=== PATIENT | male | born 1990 | race Caucasian/White ===

== ENCOUNTER 2024-09-26 01:53 | Emergency (ER) | payer MEDICAID, SELFPAY ==
[2024-09-26 02:00] VITALS: BP 140/106; PULSE 118; RESP 16; TEMP 36.7; O2SAT 98; BMI 58.5
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
[2024-09-26] MEDS: ONDANSETRON ODT 4 MG TAB PO (02:23)
[2024-09-26 03:00] VITALS: BP 135/78; PULSE 98; RESP 16; TEMP 36.8; O2SAT 98; O2SAT 99
[2024-09-26] MEDS: OXYCODONE 5 MG TABLET PO (03:04)
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
--- OUTSIDE RECORDS SUMMARY | 2024-09-26 03:23 | XMS_ITS | Encounter Summary ---
Author Organization [facility] Address [address] [place] [address] Care Team Providers Care Blade Balancer Name Role Phone Nicolas Luna D.O. Primary Care Provider Reason for Visit * Reason Onset Date Comments Appt Request 08/15/2024 Encounter Details Date Type Department Care Team (Late st Contact Info) Description 08/15/2024 Clinical Communication [facility] Family Medicine Residency [place] [address] [place] [phone] Nicolas Luna D.O. [address] [place] [phone] Appt Request Social History Tobacco Use Types Packs/Day Years Used Date Smoking Tobacco: Every Day Cigarettes 1 19.1 Started: 08/31/2005 Smokeless Tobacco: Never Alcohol Use Standard Drinks/Week Comments Not Currently 0 (1 standard drink = 0.6 oz pur e alcohol) [facility] Utilities Answer Date Recorded In the past 12 months has e electric, gas, oil, or water company threatened to shut off services in your [...] often do you attend chur ch or adventist services? Never 11/01/2021 Do you belong to any clubs o r organizations such as alevism groups, unions, fraternal or athletic groups, or [...] PHQ-2 Answer Date Recorded PHQ-2 Score 6 09/07/2024 [facility] - Occupational Stress Questionnaire Answer Date Recorded [...] ded PHQ-9 Total Score (max 27) 27 09/07 Nutrition Answer Date Recorded On average, how many serving s of fruits and vegetables do you eat per day (serving size is equal to 1 cup or approximately the size of a tennis ball)? 3-5 06/13/2024 Dental Answer Date Recorded Dental: Regular Dentist No 06/13/20 Employment Answer Date Recorded Employment status Unemployed/not in th e paid workforce but seeking employment 06/13/2024 Housing Stability Answer Date Recorded What is your living situation today? I have a [facility] place to live 06/13/2024 Education Answer Date Recorded What is the highest level of school you have completed or the highest degree you have received? GED or equivalent 11/2021 Sex and Gender Information Value Date Recorded Sex Assigned at Male 11/01/2021 8:39 AM TRANSIT DRIVER Legal Sex Male 4:42 PM TRANSIT DRIVER Gender Identity Male 11/01/2021 8:39 AM TRANSIT DRIVER Sexual Orientation Lesbian or Guerrier 11/01/2021 8: 39 AM TRANSIT DRIVER documented as of this encounter Functional Status * 1. Wish to be (Past 1 Month) Answer Date of Assessment Author Yes 09/07/2024 3:39 PM TRANSIT DRIVER Patient, Online Services * 2. Non-Specific Active Suicidal Thoughts (Past 1 Month) Answer Date of Assessment Author No 09/07/2024 3:39 PM TRANSIT DRIVER Patient, Online Services * Calculated C-SSRS Risk Score (Lifetime/Recent) Answer Date of Assessment Author Low Risk 09/07/2024 3:39 PM TRANSIT DRIVER Patient, Online Services * 6. Suicidal Behavior (Lifetime) Answer Date of Assessment Author No 09/07/2024 3:39 PM TRANSIT DRIVER Patient, Online Services documented as of this encounter Miscellaneous Notes * Telephone Encounter - Shruthi Torres - 08/16/2024 8:21 AM CST 08/16/24 lvm to call back and schedule-lk SIT DRIVER * Telephone Encounter - Terrie Kaur C.M.A. - 08/15/2024 11:05 AM TRANSIT DRIVER is not in clinic next week. First URG/hold spot would be 09/01/24. Ok to use one of thosespots or schedule with another provider that has an opening sooner if needed. SIT DRIVER * Telephone Encounter - Dai Bojorquez - 08/15/2024 10:47 AM CST Reason for Communication: needs ER f/u with PCP or one of the other providers sometime next week. No regular openings, can we use an URG blocked time slot? Action Needed: please review. Special calling instructions: Call Ace back with appt time/day. Ok to leave detailed message on voicemail? yes Portal: Yes-I see you have the portal, we suggest communicating through the portal to serve you most efficiently. Do you approve? YES High Priority Message: yes, needs ER f/u appt If a response is needed, please reply to the appropriate scheduling pool rather than an individual. SIT DRIVER documented in this encounter Plan of Treatment Upcoming Encounters Date Type Department Care Team (Late st Contact Info) Description 10/31/2024 8:30 AM TRANSIT DRIVER Comprehensive Visit Department of Neurology in [place], [place] [address] [place] [phone] Renaldo Gates M.B., Ch.B. [address] [place] [address] documented as of this encounter Visit Diagnoses Not on filedocumented in this encounter Additional Health Concerns Assessment Noted Time PHQ-9 Depression Total Score: 27 024 3:56 PM TRANSIT DRIVER documented as of this encounter Care Teams Blade Balancer Relationship Specialty Start Date End Date Nicolas Luna D.O. [address] [place] [phone] PCP - General Family Medicine 05/13/24 documented as of this encounter
--- OUTSIDE RECORDS SUMMARY | 2024-09-26 03:23 | XMS_ITS | Encounter Summary ---
Author Organization [facility] Address [address] [place] [address] Care Team Providers Care Operations Technician Name Role Phone Nicolas Castellon D.O. Primary Care Provider Reason for Visit * Reason Comments Med Refill Encounter Details Date Type Department Care Team (Late st Contact Info) Description 08/20/2024 Refill [facility] Family Medicine Residency [place] [address] [facility] [phone] Sam Mcpherson M.D. [address] [place] [phone] Med Refill Social History Tobacco Use Types Packs/Day Years Used Date Smoking Tobacco: Every Day Cigarettes 1 19.1 Started: 08/31/2005 Smokeless Tobacco: Never Alcohol Use Standard Drinks/Week Comments Not Currently 0 (1 standard drink = 0.6 oz pur e alcohol) [facility] Utilities Answer Date Recorded In the past [...] often do you attend chur ch or zoroastrian services? Never 11/01/2021 Do you belong to any clubs o r organizations such as roman catholic groups, unions, fraternal or athletic groups, or [...] Answer Date Recorded PHQ-2 Score 6 07/26/2024 [facility] - Occupational [...] your living situation today? I have a [facility] place to live 06/13/2024 Education Answer Date Recorded What is the highest level of school you have completed or the highest degree you have received? GED or equivalent 11/2021 Sex and Gender Information Value Date Recorded Sex Assigned at Male 11/01/2021 8:39 AM FOREIGN FOOD COOK SPECIALTY Legal Sex Male 4:42 PM FOREIGN FOOD COOK SPECIALTY Gender Identity Male 11/01/2021 8:39 AM FOREIGN FOOD COOK SPECIALTY Sexual Orientation Lesbian or Guerrier 11/01/2021 8: 39 AM FOREIGN FOOD COOK SPECIALTY documented as of this encounter Miscellaneous Notes * Telephone Encounter - Beth Shafer, R.N. - 08/22/2024 10:45 AM FOREIGN FOOD COOK SPECIALTY Images from the original note were not included. Last PCP Visit: 06/14/24 Future PCP Visit: none scheduled Script last written: 06/29/24 for 45 tablets EDUCATIONAL ASSISTANT as of today: [employer] * Telephone Encounter - Gina Beavers - 08/22/2024 8:49 AM CST Needs Review: Med Refill Team is unable to forward request to provider. Controlled Substance Primary Provider: Nicolas Castellon D.O. Requested Prescriptions Pending Prescriptions Disp Refills LORazepam (Ativan) 2 mg tablet [Pharmacy Med Name: LORAZEPAM 2MG TABS] 45 tablet 0 Sig: TAKE ONE TABLET BY MOUTH THREE TIMES A DAY NEEDED FOR ANXIETY [employer] documented in this encounter Plan of Treatment Upcoming Encounters Date Type Department Care Team (Late st Contact Info) Description 10/31/2024 8:30 AM FOREIGN FOOD COOK SPECIALTY Comprehensive Visit Department of Neurology in [place], [place] [address] [place] [phone] Renaldo Gates M.B., Ch.B. [address] [place] [phone] documented as of this encounter Visit Diagnoses Diagnosis Other Mixed Anxiety Disorders documented in this encounter Additional Health Concerns Assessment Noted Time PHQ-9 Depression Total Score: 27 024 3:56 PM FOREIGN FOOD COOK SPECIALTY documented as of this encounter Care Teams Operations Technician Relationship Specialty Start Date End Date Nicolas Castellon D.O. [address] [place] [phone] PCP - General Family Medicine 05/13/24 documented as of this encounter
--- OUTSIDE RECORDS SUMMARY | 2024-09-26 03:24 | XMS_ITS | Encounter Summary ---
Author Organization [facility] Address [address] [place] [address] Care Team Providers Care Investment Director Name Role Phone Nicolas Luna D.O. Primary Care Provider Reason for Visit * Reason Onset Date Comments Med Refill 08/25/2024 Encounter Details Date Type Department Care Team (Late st Contact Info) Description 08/25/2024 Refill [facility] Family Medicine Residency [place] [address] [place] [phone] Sam Mcpherson M.D. [address] [place] [phone] Med Refill Social History Tobacco Use Types Packs/Day Years Used Date Smoking Tobacco: Every Day Cigarettes 1 19.1 Started: 08/31/2005 Smokeless Tobacco: Never Alcohol Use Standard Drinks/Week Comments Not Currently 0 (1 standard drink = 0.6 oz pur e alcohol) [facility] Utilities Answer Date Recorded In the [...] often do you attend chur ch or faith services? Never 11/01/2021 Do you belong to any clubs o r organizations such as synagogue groups, unions, fraternal or athletic groups, or [...] Answer Date Recorded PHQ-2 Score 6 07/26/2024 [facility] ional [facility] - [...] your living situation today? I have a [facility] place to live 06/13/2024 Education Answer Date Recorded What is the highest level of school you have completed or the highest degree you have received? GED or equivalent 11/2021 Sex and Gender Information Value Date Recorded Sex Assigned at Male 11/01/2021 8:39 AM SHAPER SETTER Legal Sex Male 4:42 PM SHAPER SETTER Gender Identity Male 11/01/2021 8:39 AM SHAPER SETTER Sexual Orientation Lesbian or Guerrier 11/01/2021 8: 39 AM SHAPER SETTER documented as of this encounter Plan of Treatment Upcoming Encounters Date Type Department Care Team (Late st Contact Info) Description 10/31/2024 8:30 AM SHAPER SETTER Comprehensive Visit Department of Neurology in [address] [phone] Renaldo Gates M.B., Ch.B. [address] [place] [address] documented as of this encounter Visit Diagnoses Diagnosis Other Mixed Anxiety Disorders documented in this encounter Additional Health Concerns Assessment Noted Time PHQ-9 Depression Total Score: 27 024 3:56 PM SHAPER SETTER documented as of this encounter Care Teams Investment Director Relationship Specialty Start Date End Date Nicolas Luna D.O. [address] [place] [phone] PCP - General Family Medicine 05/13/24 documented as of this encounter
--- OUTSIDE RECORDS SUMMARY | 2024-09-26 03:24 | XMS_ITS | Clinical Summary ---
Author Organization [facility] Address [place], [place] [address] Care Team Providers Care Interventional Sale Consultant Name Role Phone Pcp, No Primary Care Provider Unavailabl e Allergies Active Allergy Reactions Criticality Noted Date Comments Escitalopram Rash 02/17/2016 Full body rash Bupropion *Unknown 02/17/2016 No reactions documented Medications * This document contains information received from the source organization and may not represent a complete record from that organization. levomilnacipran 120 mg Cs24 Take 120 mg by mouth once daily. Active lurasidone 60 mg tab Take 60 mg by mouth with dinner. Active QUEtiapine (SEROQUEL XR) 400 mg Extended-Releas e tablet Take 800 mg by mouth at bedtime. Active QUEtiapine (SEROQUEL XR) 150 mg Tb24 Extended-Releas e tablet Take 150 mg by mouth once daily in the afternoon. Active hydrOXYzine pamoate 100 mg capsuleIndicati ons:Anxiety Take 1 capsule by mouth 3 times daily if needed for Anxiety. 0 02/20/2016 Active Active Problems Problem Noted Date Diagnosed Date Schizoaffective disorder, depressive type 2015 Encounters Date Type Department Care Team Description 08/14/2024 10:32 AM CELLO TEACHER - 08/14/2024 11:58 AM CELLO TEACHER Emergency [facility] [address] [place] [address] Nehemiah Rodriguez PA COVID-19 (Primary Dx) Discharge Disposition: Home Self Care 08/14/2024 Telephone [facility] [address] [place] [address] Kwasi Guzman, PharmD Abnormal Lab Results 08/14/2024 Travel from Last 3 Months Family History Medical History Relation Name Comments Alcoholism Maternal Grandfather Alcoholism Maternal Grandmother Alcoholism Paternal Grandfather Alcoholism Paternal Grandmother Relation Name Status Comments Maternal Grandfather Maternal Grandmother Paternal Grandfather Paternal Grandmother Social History Tobacco Use Types Packs/Day Years Used Date Smoking Tobacco: Every Day Cigarettes 1 7 Tobacco Cessation:Ready to Q uit: No; Counseling Given: Yes Alcohol Use Standard Drinks/Week Comments Yes 0 (1 standard drink = 0.6 oz pure alcohol) Occasional, about 1-2 times per week, 0.5 liters each time. Sex and Gender Information Value Date Recorded Sex Assigned at Not on file Legal Sex Male 3:54 PM CDT Gender Identity Not on file Sexual Orientation Not on file Obstetrics History Last Filed Vital Signs Vital Sign Reading Time Taken Comments Blood Pressure 134/84 08/14/2024 11:32 AM CELLO TEACHER Pulse 81 08/14/2024 11:32 AM CELLO TEACHER Temperature 36.5 C (97.7 F) 08/14/2024 10:32 AM CELLO TEACHER Respiratory Rate 20 08/14/2024 10:32 AM CELLO TEACHER Oxygen Saturation 97% 08/14/2024 11:32 AM CELLO TEACHER Inhaled Oxygen Concentration - - Weight 190.1 kg (419 lb) 08/14/2024 10:32 AM CELLO TEACHER Height 182.9 cm (6') 08/14/2024 10:32 AM CELLO TEACHER Body Mass Index 56.83 08/14/2024 10:32 AM CELLO TEACHER Plan of Treatment Health Maintenance Due Date Last Done Comments Tdap 2003 HIV for age 15-65 2007 BMI (ht and wt on same day) for age 18+ 2010 Hepatitis C screening for ag e 18-79 2010 Tetanus booster 2012 Depression screening for age 12+ 02/16/2017 02/17/20 16 COVID-19 vaccine series ( season) 2024 Influenza for age 9-49 05/01/2024 Pneumococcal series for age 6-49 Aged Out No longer eligible based on patient's age to complete this topic Procedures Procedure Name Priority Date/Time Associated Diagnosis Comments XR CHEST 2 VIEWS PA AND LATERAL STAT 08/14/2024 11:40 AM CELLO TEACHER STREP A PCR STAT 08/14/2024 10:46 AM CELLO TEACHER THROAT RAPID STREP A WITH REFLEX STAT 08/14/2024 10:46 AM CELLO TEACHER INFLUENZA A/B PCR STAT 08/14/2024 10: 46 AM CELLO TEACHER COVID-19 MOLECULAR Today 08/14/2024 10 :46 AM CELLO TEACHER from Last 3 Months Results * XR CHEST 2 VIEWS PA AND LATERAL (08/14/2024 11:40 AM CELLO TEACHER) Anatomical Region Laterality Modality CHEST, THORAX, Lung, HEART Digit al Radiography [facility] Fin al Result * (ABNORMAL) COVID-19 MOLECULAR (08/14/2024 10:46 AM CELLO TEACHER) Pathologist [address] MOLECULAR Detected(A) Not detected 08/14/2024 11:25 AM CELLO TEACHER [facility] 08/14/2024 11:25 AM CELLO TEACHER [facility] Comment:Specimen submitted t o [facility] for testing. Other SPECIMEN FROM NASOPHARYNGEAL STRUCTURE / Unknown Non-Blood / Unknown 08/14/2024 10:46 AM CELLO TEACHER 08/14/2024 11:00 AM CELLO TEACHER Nehemiah [facility] Fin al Result [facility] [address] [phone] * (ABNORMAL) STREP A PCR (08/14/2024 10:46 AM CELLO TEACHER) Pathologist [facility] GROUP A STREP Positive(A ) 08/14/2024 2:29 PM CELLO TEACHER [facility]-AT[facility] TRAL LABORAT[facility] Throat SPECIMEN FROM THROAT / Unknown Non-Blood / Unknown 08/14/2024 10:46 AM CELLO TEACHER 08/14/2024 11:15 AM CELLO TEACHER Nehemiah [facility] Fin al Result [facility] [address] [place] [address], * INFLUENZA A/B PCR (08/14/2024 10:46 AM CELLO TEACHER) INFLUENZA A PCR NOT Detected 08/14/2024 11:25 AM CELLO TEACHER [facility] INFLUENZA B PCR NOT Detected 08/14/2024 11:25 AM CELLO TEACHER [facility] Other SPECIMEN FROM NASOPHARYNGEAL STRUCTURE / Unknown Non-Blood / Unknown 08/14/2024 10:46 AM CELLO TEACHER 08/14/2024 11:00 AM CELLO TEACHER Nehemiah [facility] Fin al Result Performing Organization Address [facility] Co de Phone Number [facility] [address] [phone] * THROAT RAPID STREP A WITH REFLEX (08/14/2024 10:46 AM CELLO TEACHER) STREP A ANTIGEN Negative 08/14/2024 11:15 AM CELLO TEACHER [facility] Comment:PCR to follow. Throat SPECIMEN FROM THROAT / Unknown Non-Blood / Unknown 08/14/2024 10:46 AM CELLO TEACHER 08/14/2024 11:00 AM CELLO TEACHER Nehemiah [facility] Fin al Result Performing Organization Address [facility] Co de Phone Number [facility] [address] [phone] from Last 3 Months Insurance MEDICAID [facility] Advance Directives * Full Code (Latest Code Status on File) Date Activated Date Inactivated Comments 02/17/2016 4:09 AM 02/20/2016 12:24 PM Care Teams Interventional Sale Consultant Relationship Specialty Start Date End Date Pcp, No . PCP - General 08/14/24
--- OUTSIDE RECORDS SUMMARY | 2024-09-26 03:24 | XMS_ITS | Encounter Summary ---
Author Organization [facility] Address [address] [place] [address] Care Team Providers Care Tradeshow Worker Name Role Phone Nicolas Castellon D.O. Primary Care Provider Reason for Visit * Reason Comments Med Refill Encounter Details Date Type Department Care Team (Late st Contact Info) Description 08/25/2024 Refill [facility] Family Medicine [place] [address] [facility] [address] Sam Mcpherson M.D. [address] [place] [address] Med Refill Social History Tobacco Use Types Packs/Day Years Used Date Smoking Tobacco: Every Day Cigarettes 1 19.1 Started: 08/31/2005 Smokeless Tobacco: Never Alcohol Use Standard Drinks/Week Comments Not Currently 0 (1 standard drink = 0.6 oz pur e alcohol) [facility] Utilities Answer Date Recorded In the [...] often do you attend chur ch or denominational services? Never 11/01/2021 Do you belong to any clubs o r organizations such as nondenominational groups, unions, fraternal or athletic groups, or [...] Answer Date Recorded PHQ-2 Score 6 07/26/2024 [facility] Occupat ional Health - Occupational Stress [...] your living situation today? I have a [facility] place to live 06/13/2024 Education Answer Date Recorded What is the highest level of school you have completed or the highest degree you have received? GED or equivalent 11/2021 Sex and Gender Information Value Date Recorded Sex Assigned at Male 11/01/2021 8:39 AM REPEAT CHIEF Legal Sex Male 4:42 PM REPEAT CHIEF Gender Identity Male 11/01/2021 8:39 AM REPEAT CHIEF Sexual Orientation Lesbian or Guerrier 11/01/2021 8: 39 AM REPEAT CHIEF documented as of this encounter Miscellaneous Notes * Telephone Encounter - Rena Arellano - 08/26/2024 12:04 PM CST Needs Review: Med Refill Team is unable to forward request to provider. Controlled Substance Primary Provider: Nicolas Castellon D.O. Requested Prescriptions Pending Prescriptions Disp Refills LORazepam (Ativan) 2 mg tablet [Pharmacy Med Name: LORAZEPAM 2MG TABS] 45 tablet 0 Sig: TAKE ONE TABLET BY MOUTH THREE TIMES A DAY NEEDED FOR ANXIETY AT CHIEF documented in this encounter Plan of Treatment Upcoming Encounters Date Type Department Care Team (Late st Contact Info) Description 10/31/2024 8:30 AM REPEAT CHIEF Comprehensive Visit Department of Neurology in [place], [place] [address] [place] [phone] Renaldo Gates M.B., Ch.B. [address] [place] [phone] documented as of this encounter Visit Diagnoses Diagnosis Other Mixed Anxiety Disorders documented in this encounter Additional Health Concerns Assessment Noted Time PHQ-9 Depression Total Score: 27 024 3:56 PM REPEAT CHIEF documented as of this encounter Care Teams Tradeshow Worker Relationship Specialty Start Date End Date Nicolas Castellon D.O. [address] [place] [address] PCP - General Family Medicine 05/13/24 documented as of this encounter
--- OUTSIDE RECORDS SUMMARY | 2024-09-26 03:25 | XMS_ITS | Encounter Summary ---
Author Organization [facility] Address [address] [place] [address] Care Team Providers Care Uniformer Name Role Phone Nicolas Luna D.O. Primary Care Provider Encounter Details Date Type Department Care Team (Latest Contact Info) Description 09/19/2024 8:42 AM SPINNER FIXER - 09/19/2024 11:59 PM [facility] Hospital Encounter Department of Laboratory Medicine, [facility], in [place], [place] [address] [place] [phone] Minh Alves M.D., M.P.H. [address] [place] [phone] Attention Deficit With Hyperactivity Disorder; Bipolar Disorder (HCC); Polypharmacy; High Risk Medication; Posttraumatic Stress Disorder Prolonged; Other Stimulant Use Unspecified In Remission; Body Mass Index 50.0 To 59.9 Adult (HCC) Discharge Disposition: Home or Self Care Social History Tobacco Use Types Packs/Day Years Used Date Smoking Tobacco: Some Days Cigarettes 1 19.1 Started: 08/31/2005 Smokeless Tobacco: Never Alcohol Use Standard Drinks/Week Comments Yes 0 (1 standard drink = 0.6 oz pur e alcohol) occasional - monthly [facility] Utilities Answer Date Recorded In the past 12 months has [employer] electric, gas, oil, or water company threatened [...] week 11/01/2021 How often do you attend [facility] or hinduism services? Never 11/01/2021 Do you belong to any clubs o r organizations such as jewish groups, unions, fraternal or athletic groups, or [...] Answer Date Recorded PHQ-2 Score 6 09/07/2024 [facility] of Occupat ional Health - Occupational Stress [...] your living situation today? I have a [facility] place to live 06/13/2024 Education Answer Date Recorded What is the highest level of school you have completed or the highest degree you have received? GED or equivalent 11/2021 Sex and Gender Information Value Date Recorded Sex Assigned at Male 11/01/2021 8:39 AM SPINNER FIXER Legal Sex Male 4:42 PM SPINNER FIXER Gender Identity Male 11/01/2021 8:39 AM SPINNER FIXER Sexual Orientation Lesbian or Guerrier 11/01/2021 8: 39 AM SPINNER FIXER documented as of this encounter Medications at Time of Discharge albuterol 90 mcg/actuation inhalerIndications :Asthma Mild Intermittent (HCC) Inhale 2 puffs every 6 (six) hours as needed for wheezing. 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 30 tablet 2 05/16/2024 amphetamine-dextro amphetamine (AdderalL XR) 10 mg 24 hr capsuleIndications :Attention Deficit With Hyperactivity Disorder Take 1 capsule (10 mg total) by mouth every morning. 30 capsule 07/23/2024 ARIPiprazole (Abilify) 10 mg tabletIndications: Bipolar Disorder (HCC) Take 1 tablet (10 mg total) by mouth daily. 30 tablet 2 05/16/2024 azelastine (Astelin) 137 mcg/spray (0.1 %) nasal sprayIndications:A llergy Seasonal Administer 1 spray into each nostril as needed for allergies. 30 mL 2 05/16/2024 cetirizine (ZyrTEC) 10 mg tabletIndications: Allergy Seasonal Take 1 tablet (10 mg total) by mouth at bedtime as needed for allergies. 30 tablet 3 05/16/2024 ipratropium-albute roL (DuoNeb) 0.5-2.5 mg/3 mL nebulizer solutionIndication s:Asthma Mild Intermittent (HCC) Inhale 3 mL by nebulization 4 (four) times a day as needed for wheezing or shortness of breath. 180 mL 1 05/16/2024 lithium carbonate (Lithobid) 300 mg ER tablet Take 1 tablet (300 mg total) by mouth at bedtime for 7 days, THEN 2 tablets (600 mg total) at bedtime. 173 tablet 09/09/2024 12/16/19 25 LORazepam (Ativan) 2 mg tabletIndications: Other Mixed Anxiety Disorders Take 1 tablet (2 mg total) by mouth every 8 (eight) hours as needed for anxiety. 45 tablet 08/29/2024 meclizine (Antivert) 25 mg tabletIndications: Dizziness Take 1 tablet (25 mg total) by mouth 3 (three) times a day as needed for dizziness. 30 tablet 05/16/2024 metFORMIN XR (Glucophage-XR) 500 mg 24 hr tabletIndications: PreDiabetes Take 1 tablet (500 mg total) by mouth daily. 30 tablet 3 06/14/2024 10/12/19 25 omeprazole (PriLOSEC) [address] capsuleIndications :Gastroesophageal Reflux Disease Without Esophagitis Take 1 capsule (40 mg total) by mouth daily. 30 capsule 3 05/16/2024 phentermine (Adipex-P) 37.5 mg tablet Take 1 tablet by mouth daily before morning meal. 07/11/2024 prazosin (Minipress) 5 mg capsuleIndications :Posttraumatic Stress Disorder Prolonged Take 1 capsule (5 mg total) by mouth at bedtime. Take 10 mg daily in addition to 1 mg capsule daily for a total of 11 mg daily. 30 capsule 2 09/08/2024 topiramate (Topamax) 100 mg tablet Take 1 tablet (100 mg total) by mouth 2 (two) times a day. 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 30 tablet 3 06/14/2024 10/12/19 25 documented as of this encounter Plan of Treatment Upcoming Encounters Date Type Department Care Team (Late st Contact Info) Description 10/31/2024 8:30 AM SPINNER FIXER Comprehensive Visit Department of Neurology in [address] [phone] Renaldo Gates M.B., Ch.B. [address] [place] [phone] documented as of this encounter Procedures Procedure Name Priority Date/Time Associated Diagnosis Comments LIPID PANEL, S Routine 09/19/2024 9:11 AM SPINNER FIXER Attention Deficit With Hyperactivity Disorder Bipolar Disorder (HCC) Polypharmacy High Risk Medication Posttraumatic Stress Disorder Prolonged Other Stimulant Use Unspecified In Remission Body Mass Index 50.0 To 59.9 Adult ([facility]) VITAMIN D, IMMUNOASSAY, TOTAL, S Routine 09/19/2024 9:11 AM SPINNER FIXER Attention Deficit With Hyperactivity Disorder Bipolar Disorder (HCC) Polypharmacy High Risk Medication Posttraumatic Stress Disorder Prolonged Other Stimulant Use Unspecified In Remission Body Mass Index 50.0 To 59.9 Adult ([facility]) THYROID-STIMULATING HORMONE-SENSITIVE (S-TSH) Routine 09/19/2024 9:11 AM SPINNER FIXER Attention Deficit With Hyperactivity Disorder Bipolar Disorder (HCC) Polypharmacy High Risk Medication Posttraumatic Stress Disorder Prolonged Other Stimulant Use Unspecified In Remission Body Mass Index 50.0 To 59.9 Adult (HCC) T4 (THYROXINE), TOT ONLY, S Routine 09/19/2024 9:11 AM SPINNER FIXER Attention Deficit With Hyperactivity Disorder Bipolar Disorder (HCC) Polypharmacy High Risk Medication Posttraumatic Stress Disorder Prolonged Other Stimulant Use Unspecified In Remission Body Mass Index 50.0 To 59.9 Adult (HCC) HEMOGLOBIN A1C, B Routine 09/19/2024 9:1 1 AM SPINNER FIXER Attention Deficit With Hyperactivity Disorder Bipolar Disorder (HCC) Polypharmacy High Risk Medication Posttraumatic Stress Disorder Prolonged Other Stimulant Use Unspecified In Remission Body Mass Index 50.0 To 59.9 Adult (HCC) FOLATE, S Routine 09/19/2024 9:11 AM SPINNER FIXER Attention Deficit With Hyperactivity Disorder Bipolar Disorder (HCC) Polypharmacy High Risk Medication Posttraumatic Stress Disorder Prolonged Other Stimulant Use Unspecified In Remission Body Mass Index 50.0 To 59.9 Adult (HCC) FERRITIN, S Routine 09/19/2024 9:11 AM SPINNER FIXER Attention Deficit With Hyperactivity Disorder Bipolar Disorder (HCC) Polypharmacy High Risk Medication Posttraumatic Stress Disorder Prolonged Other Stimulant Use Unspecified In Remission Body Mass Index 50.0 To 59.9 Adult (HCC) VITAMIN B12 ASSAY, S Routine 09/19/2024 9:11 AM SPINNER FIXER Attention Deficit With Hyperactivity Disorder Bipolar Disorder (HCC) Polypharmacy High Risk Medication Posttraumatic Stress Disorder Prolonged Other Stimulant Use Unspecified In Remission Body Mass Index 50.0 To 59.9 Adult (HCC) CREATININE WITH EGFR, S/P Routine 09/19/2024 9:11 AM SPINNER FIXER Attention Deficit With Hyperactivity Disorder Bipolar Disorder (HCC) Polypharmacy High Risk Medication Posttraumatic Stress Disorder Prolonged Other Stimulant Use Unspecified In Remission Body Mass Index 50.0 To 59.9 Adult (HCC) LITHIUM LEVEL, S Routine 09/19/2024 9:11 AM SPINNER FIXER Attention Deficit With Hyperactivity Disorder Bipolar Disorder (HCC) Polypharmacy High Risk Medication Posttraumatic Stress Disorder Prolonged Other Stimulant Use Unspecified In Remission Body Mass Index 50.0 To 59.9 Adult (HCC) documented in this encounter Results * (ABNORMAL) Vitamin D, Immunoassay, Total, Serum (09/19/2024 9:11 AM SPINNER FIXER) Vitamin D, Immunoassay, Total, S 15(L) 20 - 80 ng/mL 09/19/2024 12:21 PM SPINNER FIXER [facility] Comment: Interpretation: 10-19 ng/mL (mild to moderate deficiency) Optimum levels within the healthy population are 20-50, patients with bone disease may benefit from high levels within this range Blood (Blood, Venous) 09/19/2024 9:11 AM SPINNER FIXER 09/19/2024 11:29 AM SPINNER FIXER Minh Alves M.D., M.P.H. LAB BLOOD ADD-ON Fi nal Result [facility] [address] [place] [address], [facility] [place] [address] * (ABNORMAL) Lipid Panel (09/19/2024 9:11 AM SPINNER FIXER) Triglycerides 274(H) mg/dL 09/19/2024 12:14 PM SPINNER FIXER [facility] Comment: ----REFERENCE VALUE---- Normal: <150 mg/dL Borderline High: 150-199 mg/dL High: 200-499 mg/dL Very High: > or =500 mg/dL Cholesterol, Total 197 mg/dL 2024 12:14 PM SPINNER FIXER [facility] Comment: ----REFERENCE VALUE---- Desirable: < 200 mg/dL Borderline High: 200 - 239 mg/dL High: > or = 240 mg/dL Cholesterol, LDL, Calculated 103 mg/dL 09/19/2024 12:14 PM SPINNER FIXER [facility] Comment: ----REFERENCE VALUE---- Desirable: <100 mg/dL Above Desirable: 100-129 mg/dL Borderline High: 130-159 mg/dL High: 160-189 mg/dL Very High: >=190 mg/dL ----ADDITIONAL INFORMATION---- LDL cholesterol calculated using the Kwon/NIH equation. Cholesterol, HDL 47 >=40 mg/dL 09/19/19 12:14 PM SPINNER FIXER [facility] Cholesterol, Non-HDL, Calculated 150 mg/dL 09/19/2024 12:14 PM SPINNER FIXER [facility] Comment: ----REFERENCE VALUE---- Desirable: <130 mg/dL Above Desirable: 130-159 mg/dL Borderline High: 160-189 mg/dL High: 190-219 mg/dL Very High: > or =220 mg/dL Fasting (8 HR or more) Yes 09/19/2024 9:11 AM SPINNER FIXER [facility] Blood (Blood, Venous) 09/19/2024 9:11 AM SPINNER FIXER 09/19/2024 11:30 AM SPINNER FIXER Minh Alves M.D., M.P.H. LAB BLOOD ADD-ON Fi nal Result Performing Organization Address City/[facility]/ZIP Co de Phone Number [facility] [address] [place] [address] * Hemoglobin A1c (09/19/2024 9:11 AM SPINNER FIXER) Hemoglobin A1c, B 5.3 4.2 - 5.6 % 09/19/2024 12:00 PM SPINNER FIXER [facility] Blood (Blood, Venous) 09/19/2024 9:11 AM SPINNER FIXER 09/19/2024 11:27 AM SPINNER FIXER Minh Alves M.D., M.P.H. LAB BLOOD ADD-ON Fi nal Result [facility] [address] [place], [place] [address] [place] [address] * Ferritin (09/19/2024 9:11 AM SPINNER FIXER) Ferritin, S 93 31 - 409 mcg/L 09/19/2024 12:15 PM SPINNER FIXER [facility] Comment: Biotin has been identified by the administrative services coordinator as a potential interfering substance. Higher concentrations of biotin may be found in multivitamins, hair/nail supplements, and workout supplements. If the result does not match clinical observations, repeat testing after patient refrains from the use of supplements for at least 12 hours. Blood (Blood, Venous) 09/19/2024 9:11 AM SPINNER FIXER 09/19/2024 11:29 AM SPINNER FIXER Minh Alves M.D., M.P.H. LAB BLOOD ADD-ON Fi nal Result [facility] [address] [place] [address], [place] [address] * North Industry Level (09/19/2024 9:11 AM SPINNER FIXER) [place], S 0.7 0.5 - 1.2 mmol/L 09/19/2024 12:40 PM SPINNER FIXER [facility] Blood (Blood, Venous) 09/19/2024 9:11 AM SPINNER FIXER 09/19/2024 11:29 AM SPINNER FIXER Minh Alves M.D., M.P.H. LAB BLOOD ADD-ON Fi nal Result [facility] [address] [place] [address], [place] [address] * Folate (09/19/2024 9:11 AM SPINNER FIXER) Folate, S 8.6 >=4.0 mcg/L 09/19/2024 12:21 PM SPINNER FIXER [facility] Comment: Biotin has been identified by the administrative services coordinator as a potential interfering substance. Higher concentrations of biotin may be found in multivitamins, hair/nail supplements, and workout supplements. If the result does not match clinical observations, repeat testing after patient refrains from the use of supplements for at least 12 hours. Blood (Blood, Venous) 09/19/2024 9:11 AM SPINNER FIXER 09/19/2024 11:29 AM SPINNER FIXER Minh Alves M.D., M.P.H. LAB BLOOD ADD-ON Fi nal Result [facility] [address] [place] [address], [place] [address] * Vitamin B12 Assay (09/19/2024 9:11 AM SPINNER FIXER) Vitamin B12 Assay, S 831 232 - 1245 ng/L 09/19/2024 12:21 PM SPINNER FIXER TO Comment: Biotin has been identified by the administrative services coordinator as a potential interfering substance. Higher concentrations of biotin may be found in multivitamins, hair/nail supplements, and workout supplements. If the result does not match clinical observations, repeat testing after patient refrains from the use of supplements for at least 12 hours. Blood (Blood, Venous) 09/19/2024 9:11 AM SPINNER FIXER 09/19/2024 11:29 AM SPINNER FIXER Minh Alves M.D., M.P.H. LAB BLOOD ADD-ON Fi nal Result [facility] [address] [place] [address], [place] [address] * Creatinine with Estimated GFR (09/19/2024 9:11 AM SPINNER FIXER) Creatinine 1.01 0.74 - 1.35 mg/dL 09/19/2024 10:10 AM SPINNER FIXER [facility] Estimated GFR (eGFR) >90 >=60 mL/min/BSA 09/19/2024 10:10 AM SPINNER FIXER [facility] Comment: Estimated GFR calculated using the 2020 CKD_EPI creatinine equation. Blood (Blood, Venous) 09/19/2024 9:11 AM SPINNER FIXER 09/19/2024 9:14 AM SPINNER FIXER Minh Alves M.D., M.P.H. LAB BLOOD ADD-ON Fi nal Result Performing Organization Address City/[facility]/ZIP Co de Phone Number [facility] [address] [place] [address], [facility] [address] [place] [address] * T4 (Thyroxine), Total Only (09/19/2024 9:11 AM SPINNER FIXER) T4 (Thyroxine), Total Only, S 7.1 4.5 - 11.7 mcg/dL 2024 1:00 PM SPINNER FIXER DTL Blood (Blood, Venous) 09/19/2024 9:11 AM SPINNER FIXER 2024 12:30 PM SPINNER FIXER Minh Alves M.D., M.P.H. LAB BLOOD ADD-ON Fi nal Result Performing Organization Address [facility]/ZIP Co de Phone Number [facility] [address] [place] [address], [facility] DTL [facility] [address] [place] [address] * S-TSH (Thyroid-Stimulating Hormone - Sensitive) (09/19/2024 9:11 AM SPINNER FIXER) TSH, Sensitive 2.0 0.3 - 4.2 mIU/L 09/19/2024 12:14 PM SPINNER FIXER [facility] Blood (Blood, Venous) 09/19/2024 9:11 AM SPINNER FIXER 09/19/2024 11:30 AM SPINNER FIXER us Minh Alves M.D., M.P.H. LAB BLOOD ADD-ON Fi nal Result [facility] [address] [place] [address], [place] [facility] in [place] [address] [place] [address] documented in this encounter Visit Diagnoses Diagnosis Attention Deficit With Hyperactivity Disorder Bipolar Disorder (HCC) Polypharmacy High Risk Medication Posttraumatic Stress Disorder Prolonged Other Stimulant Use Unspecified In Remission Body Mass Index 50.0 To 59.9 Adult (HCC) documented in this encounter Additional Health Concerns Assessment Noted Time PHQ-9 Depression Total Score: 27 025 3:40 PM SPINNER FIXER documented as of this encounter Care Teams Uniformer Relationship Specialty Start Date End Date Nicolas Luna D.O. [address] [place] [phone] PCP - General Family Medicine 05/13/24 documented as of this encounter
--- OUTSIDE RECORDS SUMMARY | 2024-09-26 03:25 | XMS_ITS | Encounter Summary ---
Author Organization [facility] Address [address] [place] [address] Care Team Providers Care Copper Flotation Operator Name Role Phone Nicolas Castellon D.O. Primary Care Provider Reason for Visit * Reason Comments Med Refill Encounter Details Date Type Department Care Team (Late st Contact Info) Description 09/22/2024 Refill [facility] Family Medicine Residency [place] [address] [facility] [place] [phone] Nicolas Castellon D.O. [address] [facility] [place] [phone] Med Refill Social History Tobacco Use Types Packs/Day Years Used Date Smoking Tobacco: Some Days Cigarettes 1 19.1 Started: 08/31/2005 Smokeless Tobacco: Never Alcohol Use Standard Drinks/Week Comments Yes 0 (1 standard drink = 0.6 oz pur e alcohol) occasional - monthly [facility] Utilities Answer Date Recorded In [...] often do you attend chur ch or alevism services? Never 11/01/2021 Do you belong to any clubs o r organizations such as restoration groups, unions, fraternal or athletic groups, or [...] Answer Date Recorded PHQ-2 Score 6 09/07/2024 [facility] of Occupat ional Health - Occupational Stress [...] your living situation today? I have a [facility] place to live 06/13/2024 Education Answer Date Recorded What is the highest level of school you have completed or the highest degree you have received? GED or equivalent 11/2021 Sex and Gender Information Value Date Recorded Sex Assigned at Male 11/01/2021 8:39 AM DIE FINISHER Legal Sex Male 4:42 PM DIE FINISHER Gender Identity Male 11/01/2021 8:39 AM DIE FINISHER Sexual Orientation Lesbian or Guerrier 11/01/2021 8: 39 AM DIE FINISHER documented as of this encounter Miscellaneous Notes * Telephone Encounter - Marilyn Bustillos - 09/23/2024 5:21 PM CST Needs Review: Med Refill Team is unable to forward request to provider. Controlled Substance Primary Provider: Nicolas Castellon D.O. Requested Prescriptions Pending Prescriptions Disp Refills LORazepam (Ativan) 2 mg tablet [Pharmacy Med Name: LORAZEPAM 2MG TABS] 45 tablet 0 Sig: TAKE ONE TABLET BY MOUTH EVERY 8 HOURS NEEDED FOR ANXIETY FINISHER documented in this encounter Plan of Treatment Upcoming Encounters Date Type Department Care Team (Late st Contact Info) Description 10/31/2024 8:30 AM DIE FINISHER Comprehensive Visit Department of Neurology in [place], [place] [address] [place] [phone] Renaldo Gates M.B., Ch.B. [address] [place] [phone] documented as of this encounter Visit Diagnoses Diagnosis Other Mixed Anxiety Disorders documented in this encounter Additional Health Concerns Assessment Noted Time PHQ-9 Depression Total Score: 27 025 3:40 PM DIE FINISHER documented as of this encounter Care Teams Copper Flotation Operator Relationship Specialty Start Date End Date Nicoals Castellon D.O. [address] [place] [phone] PCP - General Family Medicine 05/13/24 documented as of this encounter
--- OUTSIDE RECORDS SUMMARY | 2024-09-26 03:25 | XMS_ITS | Encounter Summary ---
Author Organization [facility] Address [address] [place] [address] Care Team Providers Care Take Away Attendant Name Role Phone Nicolas Luna D.O. Primary Care Provider Reason for Visit * Reason Onset Date Comments Med Refill 08/29/2024 Encounter Details Date Type Department Care Team (Late st Contact Info) Description 08/29/2024 Refill Department of Family Medicine in [place], [place] [address] [place] [phone] Krish Powell D.O. [address] [place] [phone] Med Refill Social History Tobacco Use Types Packs/Day Years Used Date Smoking Tobacco: Every Day Cigarettes 1 19.1 Started: 08/31/2005 Smokeless Tobacco: Never Alcohol Use Standard Drinks/Week Comments Not Currently 0 (1 standard drink = 0.6 oz pur e alcohol) [facility] Utilities Answer Date Recorded In [...] often do you attend chur ch or latter day services? Never 11/01/2021 Do you belong to any clubs o r organizations such as catholic groups, unions, fraternal or athletic groups, [...] Answer Date Recorded PHQ-2 Score 6 07/26/2024 [facility] of Occupat ional Health - Occupational Stress [...] your living situation today? I have a [facility] place to live 06/13/2024 Education Answer Date Recorded What is the highest level of school you have completed or the highest degree you have received? GED or equivalent 11/2021 Sex and Gender Information Value Date Recorded Sex Assigned at Male 11/01/2021 8:39 AM ADMINISTRATIVE SUPPORT MANAGER Legal Sex Male 4:42 PM ADMINISTRATIVE SUPPORT MANAGER Gender Identity Male 11/01/2021 8:39 AM ADMINISTRATIVE SUPPORT MANAGER Sexual Orientation Lesbian or Guerrier 11/01/2021 8: 39 AM ADMINISTRATIVE SUPPORT MANAGER documented as of this encounter Miscellaneous Notes * Telephone Encounter - Beth Shafer R.N. - 08/29/2024 12:11 PM ADMINISTRATIVE SUPPORT MANAGER Images from the original note were not included. Last PCP Visit: 06/14/24 Future PCP Visit: none scheduled with PCP Script last written: 07/23/24 for 30 caps #9 Attention Deficit With Hyperactivity Disorder LABORATORY TECH as of today: NISTRATIVE SUPPORT MANAGER documented in this encounter Plan of Treatment Upcoming Encounters Date Type Department Care Team (Late st Contact Info) Description 10/31/2024 8:30 AM ADMINISTRATIVE SUPPORT MANAGER Comprehensive Visit Department of Neurology in [place], [place] [address] [place] [phone] Renaldo Gates M.B., Ch.B. [address] [place] [phone] documented as of this encounter Visit Diagnoses Diagnosis Attention Deficit With Hyperactivity Disorder documented in this encounter Additional Health Concerns Assessment Noted Time PHQ-9 Depression Total Score: 27 024 3:56 PM ADMINISTRATIVE SUPPORT MANAGER documented as of this encounter Care Teams Take Away Attendant Relationship Specialty Start Date End Date Nicolas Luna D.O. [address] [place] [phone] PCP - General Family Medicine 05/13/24 documented as of this encounter
--- OUTSIDE RECORDS SUMMARY | 2024-09-26 03:25 | XMS_ITS | Encounter Summary ---
Author Organization [facility] Address [address] [place] [address] Care Team Providers Care Sheeter Helper Name Role Phone Nicolas Luna D.O. Primary Care Provider Reason for Visit * Reason Comments Outpatient Infusion [facility]il[facility] * Outpatient (Routine) - Closed Specialty Diagnoses / Procedures Referred By Contsandor t Referred To Contact Diagnoses Bipolar Disorder (HCC) Schizoaffective Disorder Depressive Type (HCC) Procedures PSY Medication Injection Nicolas Luna D.O. [address] [place] [phone] Phone: tel: fax: [facility] Region Referral ID Status Reason Start Date Expiration Date Visits Re quested Visits Authorized [id number] Closed 06/27/2024 06/27/2025 1 1 Encounter Details Date Type Department Care Team (Late st Contact Info) Description 08/26/2024 8:30 AM MACHINE STAKER Infusion Department of Infusion Therapy in [place], [place] [address] [place] [phone] Nicolas Luna D.O. [address] [place] [phone] Schizoaffective Disorder Depressive Type (HCC) (Primary Dx); Bipolar Disorder (HCC) Social History Tobacco Use Types Packs/Day Years Used Date Smoking Tobacco: Every Day Cigarettes 1 19.1 Started: 08/31/2005 Smokeless Tobacco: Never Alcohol Use Standard Drinks/Week Comments Not Currently 0 (1 standard drink = 0.6 oz pur e alcohol) [facility] Utilities Answer Date Recorded In the past [...] often do you attend chur ch or yazdanism services? Never 11/01/2021 Do you belong to any clubs o r organizations such as rastafari groups, unions, fraternal or athletic groups, or [...] Answer Date Recorded PHQ-2 Score 6 07/26/2024 [facility] [place] of Occupat ional Health - Occupational Stress [...] your living situation today? I have a [facility] place to live 06/13/2024 Education Answer Date Recorded What is the highest level of school you have completed or the highest degree you have received? GED or equivalent 11/2021 Sex and Gender Information Value Date Recorded Sex Assigned at Male 11/01/2021 8:39 AM MACHINE STAKER Legal Sex Male 4:42 PM MACHINE STAKER Gender Identity Male 11/01/2021 8:39 AM MACHINE STAKER Sexual Orientation Lesbian or Guerrier 11/01/2021 8: 39 AM MACHINE STAKER documented as of this encounter Last Filed Vital Signs Vital Sign Reading Time Taken Comments Blood Pressure 124/97 08/26/2024 8:42 AM MACHINE STAKER Pulse 91 08/26/2024 8:42 AM MACHINE STAKER Temperature 36.3 C (97.3 F) 08/26/2024 8:42 AM MACHINE STAKER Respiratory Rate 18 08/26/2024 8:42 AM MACHINE STAKER Oxygen Saturation - - Inhaled Oxygen Concentration - - Weight - - Height - - Body Mass Index - - documented in this encounter Plan of Treatment Upcoming Encounters Date Type Department Care Team (Late st Contact Info) Description 10/31/2024 8:30 AM MACHINE STAKER Comprehensive Visit Department of Neurology in [place], [place] [address] [place] [phone] Renaldo Gates M.B., Ch.B. [address] [place] [phone] documented as of this encounter Visit Diagnoses Diagnosis Schizoaffective Disorder Depressive Type (HCC)- Primary Bipolar Disorder (HCC) documented in this encounter Administered Medications Inactive Administered Medications - up to 3 most recent administrations Medication Order MAR Action Action Date Dose Rate Site ARIPiprazole injection 400 mg (Abilify Maintena) 400 mg, intramuscular, Once, On Thu08/26/24 at 0900, For 1 dose, Injection Site: Deltoid or GlutealIndications:Bipolar Disorder (HCC),Schizoaffective Disorder Depressive Type (HCC) Given 08/26/2024 8:44 AM MACHINE STAKER 400 mg Right Deltoid documented in this encounter Additional Health Concerns Assessment Noted Time PHQ-9 Depression Total Score: 27 024 3:56 PM MACHINE STAKER documented as of this encounter Care Teams Sheeter Helper Relationship Specialty Start Date End Date Nicolas Luna D.O. [address] [place] [address] PCP - General Family Medicine 05/13/24 documented as of this encounter
--- OUTSIDE RECORDS SUMMARY | 2024-09-26 03:25 | XMS_ITS | Encounter Summary ---
Author Organization [facility] Address [address] [place] [address] Care Team Providers Care Grain Spouter Name Role Phone Nicolas Luna D.O. Primary Care Provider Reason for Visit * Reason Onset Date Comments Med Question 08/29/2024 Encounter Details Date Type Department Care Team (Late st Contact Info) Description 08/29/2024 Clinical Communication [facility] Family Medicine Res[facility] [place] [address] [facility] [place] [phone] Nicolas Luna D.O. [address] [facility] [place] [phone] Med Question Social History Tobacco Use Types Packs/Day Years Used Date Smoking Tobacco: Every Day Cigarettes 1 19.1 Started: 08/31/2005 Smokeless Tobacco: Never Alcohol Use Standard Drinks/Week Comments Not Currently 0 (1 standard drink = 0.6 oz pur e alcohol) [facility] Utilities Answer Date Recorded In the [...] often do you attend chur ch or judaism services? Never 11/01/2021 Do you belong to any clubs o r organizations such as adventist groups, unions, fraternal or athletic groups, or [...] Answer Date Recorded PHQ-2 Score 6 07/26/2024 [facility] of Occupat ional Health - Occupational [...] your living situation today? I have a [facility] place to live 06/13/2024 Education Answer Date Recorded What is the highest level of school you have completed or the highest degree you have received? GED or equivalent 11/2021 Sex and Gender Information Value Date Recorded Sex Assigned at Male 11/01/2021 8:39 AM CLEARING TUB WORKER Legal Sex Male 4:42 PM CLEARING TUB WORKER Gender Identity Male 11/01/2021 8:39 AM CLEARING TUB WORKER Sexual Orientation Lesbian or Guerrier 11/01/2021 8: 39 AM CLEARING TUB WORKER documented as of this encounter Miscellaneous Notes * Telephone Encounter - Terrie Kaur, C.M.A. - 08/29/2024 8:57 AM CLEARING TUB WORKER Pharmacy is saying they didn't receive script from 08/22/24. Can you please resend? RING TUB WORKER documented in this encounter Plan of Treatment Upcoming Encounters Date Type Department Care Team (Late st Contact Info) Description 10/31/2024 8:30 AM CLEARING TUB WORKER Comprehensive Visit Department of Neurology in [place], [place] [address] [place] [phone] Renaldo Gates M.B., .B. [address] [place] [phone] documented as of this encounter Visit Diagnoses Diagnosis Other Mixed Anxiety Disorders documented in this encounter Additional Health Concerns Assessment Noted Time PHQ-9 Depression Total Score: 27 024 3:56 PM CLEARING TUB WORKER documented as of this encounter Care Teams Grain Spouter Relationship Specialty Start Date End Date Nicolas Luna D.O. [address] [place] [address] PCP - General Family Medicine 05/13/24 documented as of this encounter
--- OUTSIDE RECORDS SUMMARY | 2024-09-26 03:25 | XMS_ITS ---
Author Organization [facility] Address [address] [place] [address] Care Team Providers Care Entertainment Manager Name Role Phone Unavailable Unavailable Unavailable Surgery Details Not on file Complications Check Surgery Details section. Procedure Estimated Blood Loss Check Surgery Details section. Procedure Findings Check Surgery Details section. Procedure Specimens Taken Check Surgery Details section.
--- OUTSIDE RECORDS SUMMARY | 2024-09-26 03:25 | XMS_ITS | Clinical Summary ---
Author Organization [facility] Address [address] [place] [address] Care Team Providers Care Manager Of Community Relations Name Role Phone Nicolas Luna D.O. Primary Care Provider Source Comments Patient records contain information from all sites at [facility]. For routine questions regarding patient records, call [phone] during business hours, M-F 8:00 AM - 5:00 PM Central Time. Record requests for emergency care only can be directed to [phone] at any time.[facility] Allergies Active Allergy Reactions Criticality Noted Date Comments Adhesive Rash 11/01/2021 Bupropion Hcl Rash 06/06/2017 Escitalopram Oxalate Rash 05/15/2012 Fluoxetine Other (see comments) 06/06/2017 Loratadine Hives (Reselect Reaction) High 12/24/2012 Medications * This document contains information received from the source organization and may not represent a complete record from that organization. 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 30 tablet 2 024 Active ARIPiprazole (Abilify) 10 mg tabletIndicatio ns:Bipolar Disorder (HCC) Take 1 tablet (10 mg total) by mouth daily. 30 tablet 2 024 Active albuterol 90 mcg/actuation inhalerIndicati ons:Asthma Mild Intermittent (HCC) Inhale 2 puffs every 6 (six) hours as needed for wheezing. 18 g 024 Active albuterol 2.5 mg /3 mL nebulizer solutionIndicat ions:Asthma Mild Intermittent (HCC) Inhale 3 mL (2.5 mg total) by nebulization 4 (four) times a day. 360 mL 3 Active cetirizine (ZyrTEC) 10 mg tabletIndicatio ns:Allergy Seasonal Take 1 tablet (10 mg total) by mouth at bedtime as needed for allergies. 30 tablet 3 024 Active ipratropium-alb uteroL (DuoNeb) 0.5-2.5 mg/3 mL nebulizer solutionIndicat ions:Asthma Mild Intermittent (HCC) Inhale 3 mL by nebulization 4 (four) times a day as needed for wheezing or shortness of breath. 180 mL 1 Active meclizine (Antivert) 25 mg tabletIndicatio ns:Dizziness Take 1 tablet (25 mg total) by mouth 3 (three) times a day as needed for dizziness. 30 tablet 024 Active omeprazole (PriLOSEC) [address] capsuleIndicati ons:Gastroesoph ageal Reflux Disease Without Esophagitis Take 1 capsule (40 mg total) by mouth daily. 30 capsule 3 024 Active azelastine (Astelin) 137 mcg/spray (0.1 %) nasal sprayIndication s:Allergy Seasonal Administer 1 spray into each nostril as needed for allergies. 30 mL 2 Active topiramate (Topamax) 100 mg tablet Take 1 tablet (100 mg total) by mouth 2 (two) times a day. 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 30 tablet 3 024 2024 Active metFORMIN XR (Glucophage-XR) 500 mg 24 hr tabletIndicatio ns:PreDiabetes Take 1 tablet (500 mg total) by mouth daily. 30 tablet 3 024 2024 Active amphetamine-dex troamphetamine (AdderalL XR) 10 mg 24 hr capsuleIndicati ons:Attention Deficit With Hyperactivity Disorder Take 1 capsule (10 mg total) by mouth every morning. 30 capsule Active LORazepam (Ativan) 2 mg tabletIndicatio ns:Other Mixed Anxiety Disorders Take 1 tablet (2 mg total) by mouth every 8 (eight) hours as needed for anxiety. 45 tablet Active phentermine (Adipex-P) 37.5 mg tablet Take 1 tablet by mouth daily before morning meal. Active prazosin (Minipress) 5 mg capsuleIndicati ons:Posttraumat ic Stress Disorder Prolonged Take 1 capsule (5 mg total) by mouth at bedtime. Take 10 mg daily in addition to 1 mg capsule daily for a total of 11 mg daily. 30 capsule 2 Active lithium carbonate (Lithobid) 300 mg ER tablet Take 1 tablet (300 mg total) by mouth at bedtime for 7 days, THEN 2 tablets (600 mg total) at bedtime. 173 tablet 025 2024 Active guaiFENesin (Mucinex) 600 mg 12 hr tablet Take 1,200 mg by mouth. 024 2024 Discontinued(T herapy completed) ARIPiprazole (Abilify) 30 mg tabletIndicatio ns:Bipolar Disorder (HCC) Take 1 tablet (30 mg total) by mouth daily. 30 tablet 2 024 2024 Discontinued prazosin (Minipress) 5 mg capsuleIndicati ons:Posttraumat ic Stress Disorder Prolonged Take 2 capsules (10 mg total) by mouth at bedtime. Take 10 mg daily in addition to 1 mg capsule daily for a total of 11 mg daily. 60 capsule 3 024 2024 Discontinued topiramate (Qudexy XR) 100 mg ER sprinkle capsule Take 1 capsule (100 mg total) by mouth daily before morning meal for 14 days. 14 capsule 024 2024 Discontinued(D ose adjustment) prazosin (Minipress) 1 mg capsuleIndicati ons:Posttraumat ic Stress Disorder Prolonged Take 1 capsule (1 mg total) by mouth at bedtime. Take 1 mg capsule daily in addition to 10 mg daily for a total of 11 mg daily. 30 capsule 3 024 2024 Discontinued ARIPiprazole (Abilify Maintena) 400 mg injectionIndica tions:Bipolar Disorder (HCC) Inject 1 each (400 mg total) intramuscularly every 28 (twenty-eight) days for 2 doses. 2 each 024 2024 Discontinued LORazepam (Ativan) 2 mg tabletIndicatio ns:Other Mixed Anxiety Disorders TAKE ONE TABLET BY MOUTH THREE TIMES A DAY NEEDED FOR ANXIETY 45 tablet 024 2023 Discontinued(R eorder) lithium carbonate (Lithobid) 300 mg ER tablet Take 1 tablet (300 mg total) by mouth at bedtime for 7 days, THEN 1 tablet (300 mg total) at bedtime. 67 tablet 025 2024 Discontinued(R eorder) Hospital, Clinic, or Other Facility Administered Medication Ordered Dose Route Frequency Start Date End Date Status ARIPiprazole injection 400 mg (Abilify Maintena)Indications:Attent ion Deficit With Hyperactivity Disorder,Bipolar Disorder (HCC),Polypharmacy,High Risk Medication,Posttraumatic Stress Disorder Prolonged,Other Stimulant Use Unspecified In Remission,Body Mass Index 50.0 To 59.9 Adult (HCC) 400 mg IM Once 09/19/2024 09/19/2024 Ended Active Problems Problem Noted Date Diagnosed Date Polypharmacy 09/08/2024 High Risk Medication 09/08/2024 Other Stimulant Use Unspecified In Remission 05/2025 Overview (09/08/2024): 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 -Lumbar MRI and CT AP without evidence of acute pathology. PreDiabetes 11/21/2023 Overview (06/14/2024): Most recent A1c: Lab Results Component Value Date HGBA1C 5.7 (H) 03/07/2022 Most recent microalbumin: Most recent creatinine: Lab Results Component Value Date CREATININE 0.99 06/10/2024 CREATPOC 0.8 05/23/2021 Current regimen: Metformin 500 mg daily. 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 -patient reports that he is overall feeling well and feel that his symptoms are well-controlled on current medications. Denies any significant adverse symptoms from these meds. -while he waits to get in to see a psychiatrist I will fill his medications to bridge. Assessment & Plan (06/14/2024 9:02 AM CDT): -patient states that he is working with the psychiatry team and filling out paperwork in order to schedule an appointment. I encouraged him to continue this. -also send a message to the psychiatry scheduling team in order to help facilitate this process. Other Mixed Anxiety Disorders 07/17/2021 Body Mass Index 50.0 To 59.9 Adult 04/26/2020 Obstructive Sleep Apnea Adult 04/26/2020 Schizoaffective Disorder Depressive Type 016 Resolved Problems Problem Noted Date Diagnosed Date Resolved Date Sleep Apnea 09/08/2024 09/08/2024 Encounters * This document contains information received from the source organization and may not represent a complete record from that organization. Date Type Department Care Team Description 09/22/2024 Refill [facility] [address] [place] [address] Nicolas Luna D.O. Med Refill 09/19/2024 8:42 AM TALENT ACQUISITION COORDINATOR - 09/19/2024 11:59 PM TALENT ACQUISITION COORDINATOR Hospital Encounter Department of Laboratory Medicine, [facility], in [place], [place] [address] [place] [address] Minh Alves M.D., M.P.H. Attention Deficit With Hyperactivity Disorder; Bipolar Disorder (HCC); Polypharmacy; High Risk Medication; Posttraumatic Stress Disorder Prolonged; Other Stimulant Use Unspecified In Remission; Body Mass Index 50.0 To 59.9 Adult (FORMERLY [facility]) Discharge Disposition: Home or Self Care 09/08/2024 Clinical Communication [facility] [address] [place] [address] Nicolas Luna D.O. After Visit Question 08/29/2024 Clinical Communication [facility] [address] [place] [address] Nicolas Luna D.O. Med Question 08/29/2024 Refill Department of Family Medicine in [place], [place] [address] [facility] [place] [address] Krish Powell D.O. Med Refill 08/29/2024 Refill [facility] [address] [place] [address] Marco A Brown III, M.D. Med Refill 08/29/2024 Refill [facility] [address] [place] [address] Sam Mcpherson M.D. Med Refill 08/27/2024 9:24 AM TALENT ACQUISITION COORDINATOR - 08/27/2024 11:59 PM TALENT ACQUISITION COORDINATOR Hospital Encounter Department of Laboratory Medicine, [facility], in [place], [place] [address] [place] [address] Nicolas Luna D.O. Screening Examination Diabetes Mellitus Discharge Disposition: Home or Self Care 08/26/2024 8:30 AM TALENT ACQUISITION COORDINATOR Infusion Department of Infusion Therapy in [address] [address] Nicolas Luna D.O. Schizoaffective Disorder Depressive Type (HCC) (Primary Dx); Bipolar Disorder (HCC) 08/25/2024 Refill [facility] [address] [place] [address] Sam Mcpherson M.D. Med Refill 08/25/2024 Refill [facility] [address] [place] [address] Sam Mcpherson M.D. Med Refill 08/20/2024 Refill [facility] [address] [place] [address] Sam Mcpherson M.D. Med Refill 08/15/2024 Clinical Communication [facility] [address] [place] [address] Nicolas Lnua D.O. Appt Request 08/14/2024 10:25 AM TALENT ACQUISITION COORDINATOR - 08/14/2024 11:59 PM TALENT ACQUISITION COORDINATOR Emergency [facility] [address] [place] [phone] COVID-19 Infection (Primary Dx) Discharge Disposition: Home or Self Care 08/04/2024 Orders Only [facility] Nicolas Luna D.O. Screening Examination Diabetes Mellitus 07/29/2024 9:00 AM TALENT ACQUISITION COORDINATOR Infusion Department of Infusion Therapy in [address] [address] Nicolas Luna D.O. Schizoaffective Disorder Depressive Type (HCC) (Primary Dx); Bipolar Disorder (HCC) 07/26/2024 8:45 AM TALENT ACQUISITION COORDINATOR Diagnostic Department of Neurology in [place], [place] [address] [place] [address] Krishna Pappas M.D. Incontinence Fecal; Incontinence Urinary; Paresthesia Discharge Disposition: Home or Self Care 07/19/[address] [place] [address] Krish Powell D.O. Med Refill 07/01/2024 8:30 AM CDT Infusion Department of Infusion Therapy in [address] [address] Nicolas Luna D.O. Schizoaffective Disorder Depressive Type (HCC) (Primary Dx); Bipolar Disorder (HCC) 06/27/2024 Clinical Communication [facility] [address] [place] [address] Nicolas Luna D.O. Ability Orders 06/26/[address] [place] [address] Marco A Brown III, M.D. Med Refill from Last 3 Months Immunizations Immunization Administration Dates Next Due Influenza, Unspecified 11/01/2013 PCV20 06/14/2024 PPSV23 04/27/2020 Tdap 09/27/2019,08/11/2006 influenza trivalent vaccine (6 months and older) (PF) 06/14/2024 influenza vaccine quad (FLUZ ONE/FLUARIX) (6 months and older)(PF) 10/08/2022 Social History Tobacco Use Types Packs/Day Years Used Date Smoking Tobacco: Some Days Cigarettes 1 19.1 Started: 08/31/2005 Smokeless Tobacco: Never Tobacco Cessation:Ready to Q uit: Not Asked; Counseling Given: Yes Alcohol Use Standard Drinks/Week Comments Yes 0 (1 standard drink = 0.6 oz pur e alcohol) occasional - monthly [facility] Utilities Answer Date Recorded In the [...] any clubs o r organizations such as taoist groups, unions, fraternal or athletic groups, or [...] Answer Date Recorded PHQ-2 Score 6 09/07/2024 [facility] - Occupational Stress Questionnaire Answer Date [...] your living situation today? I have a [facility] place to live 06/13/2024 Education Answer Date Recorded What is the highest level of school you have completed or the highest degree you have received? GED or equivalent 11/2021 Sex and Gender Information Value Date Recorded Sex Assigned at Male 11/01/2021 8:39 AM TALENT ACQUISITION COORDINATOR Legal Sex Male 4:42 PM TALENT ACQUISITION COORDINATOR Gender Identity Male 11/01/2021 8:39 AM TALENT ACQUISITION COORDINATOR Sexual Orientation Lesbian or Guerrier 11/01/2021 8: 39 AM TALENT ACQUISITION COORDINATOR Last Filed Vital Signs Vital Sign Reading Time Taken Comments Blood Pressure 124/97 08/26/2024 8:42 AM TALENT ACQUISITION COORDINATOR Pulse 91 08/26/2024 8:42 AM TALENT ACQUISITION COORDINATOR Temperature 36.3 C (97.3 F) 08/26/2024 8:42 AM TALENT ACQUISITION COORDINATOR Respiratory Rate 18 08/26/2024 8:42 AM TALENT ACQUISITION COORDINATOR Oxygen Saturation 96% 06/22/2024 8:07 AM CDT Inhaled Oxygen Concentration - - Weight 191 kg (420 lb) 09/08/2024 2:48 PM TALENT ACQUISITION COORDINATOR Height 182.9 cm (6' 0.01) 09/08/2024 2:48 PM CS T Body Mass Index 56.95 09/08/2024 2:48 PM TALENT ACQUISITION COORDINATOR Plan of Treatment Upcoming Encounters Date Type Department Care Team (Late st Contact Info) Description 10/31/2024 8:30 AM TALENT ACQUISITION COORDINATOR Comprehensive Visit Department of Neurology in [place], [place] [address] [place] [phone] Renaldo Gates M.B., Ch.B. [address] [place] [address] Health Maintenance Due Date Last Done Comments HIV Screening 1992 Hepatitis C Screening 1992 Hepatitis A Vaccines (1 of 2 - Risk 2-dose series) 2011 Hepatitis B Vaccines (1 of 3 - 19+ 3-dose series) 2011 Asthma Action Plan 01/14/2022 COVID-19 Vaccine ( season) 2024 01/06/2022, 02/14/2021, 01/17/2021 Asthma Control Test Questionnaire 06/24/2024 05/13/2024 Depression Screening (Annual PHQ-2) 08/31/2024 Asthma Management/Exacerbation Questionnaire (AMQ/AEQ) 05/13/2025 05/13/2024 Tobacco Cessation counseling 09/08/2025 09/08/2024 Fasting Glucose for Diabetes Screening 09/19/2025 09/19/2024, 08/27/2024, 04/09/2022, Additional history exists DTaP,Tdap,and Td Vaccines (3 - Td or Tdap) 09/27/2029 09/27/2019, 08/11/2006 Influenza Vaccine Completed 06/14/2024, , 11/01/2013 Pneumococcal vaccine (0-49 years) Completed 06/14/2024, 04/27/2020 Glucose Test for Med Monitoring Discontinued 09/19/2024, 08/27/2024, 04/09/2022, Additional history exists HPV Vaccines Aged Out No longer eligi ble based on patient's age to complete this topic IPV Vaccines Aged Out No longer eligi ble based on patient's age to complete this topic Procedures Procedure Name Priority Date/Time Associated Diagnosis Comments VITAMIN D, IMMUNOASSAY, TOTAL, S Routine 09/19/2024 9:11 AM TALENT ACQUISITION COORDINATOR Attention Deficit With Hyperactivity Disorder Bipolar Disorder (HCC) Polypharmacy High Risk Medication Posttraumatic Stress Disorder Prolonged Other Stimulant Use Unspecified In Remission Body Mass Index 50.0 To 59.9 Adult (HCC) LIPID PANEL, S Routine 09/19/2024 9:11 AM TALENT ACQUISITION COORDINATOR Attention Deficit With Hyperactivity Disorder Bipolar Disorder (HCC) Polypharmacy High Risk Medication Posttraumatic Stress Disorder Prolonged Other Stimulant Use Unspecified In Remission Body Mass Index 50.0 To 59.9 Adult (HCC) HEMOGLOBIN A1C, B Routine 09/19/2024 9:1 1 AM TALENT ACQUISITION COORDINATOR Attention Deficit With Hyperactivity Disorder Bipolar Disorder (HCC) Polypharmacy High Risk Medication Posttraumatic Stress Disorder Prolonged Other Stimulant Use Unspecified In Remission Body Mass Index 50.0 To 59.9 Adult (HCC) FERRITIN, S Routine 09/19/2024 9:11 AM TALENT ACQUISITION COORDINATOR Attention Deficit With Hyperactivity Disorder Bipolar Disorder (HCC) Polypharmacy High Risk Medication Posttraumatic Stress Disorder Prolonged Other Stimulant Use Unspecified In Remission Body Mass Index 50.0 To 59.9 Adult (HCC) LITHIUM LEVEL, S Routine 09/19/2024 9:11 AM TALENT ACQUISITION COORDINATOR Attention Deficit With Hyperactivity Disorder Bipolar Disorder (HCC) Polypharmacy High Risk Medication Posttraumatic Stress Disorder Prolonged Other Stimulant Use Unspecified In Remission Body Mass Index 50.0 To 59.9 Adult (HCC) FOLATE, S Routine 09/19/2024 9:11 AM TALENT ACQUISITION COORDINATOR Attention Deficit With Hyperactivity Disorder Bipolar Disorder (HCC) Polypharmacy High Risk Medication Posttraumatic Stress Disorder Prolonged Other Stimulant Use Unspecified In Remission Body Mass Index 50.0 To 59.9 Adult (HCC) VITAMIN B12 ASSAY, S Routine 09/19/2024 9:11 AM TALENT ACQUISITION COORDINATOR Attention Deficit With Hyperactivity Disorder Bipolar Disorder (HCC) Polypharmacy High Risk Medication Posttraumatic Stress Disorder Prolonged Other Stimulant Use Unspecified In Remission Body Mass Index 50.0 To 59.9 Adult (HCC) CREATININE WITH EGFR, S/P Routine 09/19/2024 9:11 AM TALENT ACQUISITION COORDINATOR Attention Deficit With Hyperactivity Disorder Bipolar Disorder (HCC) Polypharmacy High Risk Medication Posttraumatic Stress Disorder Prolonged Other Stimulant Use Unspecified In Remission Body Mass Index 50.0 To 59.9 Adult (HCC) T4 (THYROXINE), TOT ONLY, S Routine 09/19/2024 9:11 AM TALENT ACQUISITION COORDINATOR Attention Deficit With Hyperactivity Disorder Bipolar Disorder (HCC) Polypharmacy High Risk Medication Posttraumatic Stress Disorder Prolonged Other Stimulant Use Unspecified In Remission Body Mass Index 50.0 To 59.9 Adult (HCC) THYROID-STIMULATI NG HORMONE-SENSITIVE (S-TSH) Routine 09/19/2024 9:11 AM TALENT ACQUISITION COORDINATOR Attention Deficit With Hyperactivity Disorder Bipolar Disorder (HCC) Polypharmacy High Risk Medication Posttraumatic Stress Disorder Prolonged Other Stimulant Use Unspecified In Remission Body Mass Index 50.0 To 59.9 Adult (HCC) GLUCOSE, FASTING, S/P Routine 08/27/2024 9:33 AM TALENT ACQUISITION COORDINATOR Screening Examination Diabetes Mellitus DX CHEST AP OR PA AND LATERAL 2 VIEWS RAD - Semiurgent (Fast; most ED patients; some inpatients) 08/14/2024 11:40 AM TALENT ACQUISITION COORDINATOR EMG Routine 07/26/2024 8:32 AM TALENT ACQUISITION COORDINATOR Incontinence Fecal Incontinence Urinary Paresthesia from Last 3 Months Results * (ABNORMAL) Lipid Panel (09/19/2024 9:11 AM TALENT ACQUISITION COORDINATOR) Triglycerides 274(H) mg/dL 09/19/2024 12:14 PM TALENT ACQUISITION COORDINATOR [facility] Comment: ----REFERENCE VALUE---- Normal: <150 mg/dL Borderline High: 150-199 mg/dL High: 200-499 mg/dL Very High: > or =500 mg/dL Cholesterol, Total 197 mg/dL 2024 12:14 PM TALENT ACQUISITION COORDINATOR [facility] Comment: ----REFERENCE VALUE---- Desirable: < 200 mg/dL Borderline High: 200 - 239 mg/dL High: > or = 240 mg/dL Cholesterol, LDL, Calculated 103 mg/dL 09/19/2024 12:14 PM TALENT ACQUISITION COORDINATOR [facility] Comment: ----REFERENCE VALUE---- Desirable: <100 mg/dL Above Desirable: 100-129 mg/dL Borderline High: 130-159 mg/dL High: 160-189 mg/dL Very High: >=190 mg/dL ----ADDITIONAL INFORMATION---- LDL cholesterol calculated using the Kwon/NIH equation. Cholesterol, HDL 47 >=40 mg/dL 09/19/19 12:14 PM TALENT ACQUISITION COORDINATOR [facility] Cholesterol, Non-HDL, Calculated 150 mg/dL 09/19/2024 12:14 PM TALENT ACQUISITION COORDINATOR [facility] Comment: ----REFERENCE VALUE---- Desirable: <130 mg/dL Above Desirable: 130-159 mg/dL Borderline High: 160-189 mg/dL High: 190-219 mg/dL Very High: > or =220 mg/dL Fasting (8 HR or more) Yes 09/19/2024 9:11 AM TALENT ACQUISITION COORDINATOR [facility] Blood (Blood, Venous) 09/19/2024 9:11 AM TALENT ACQUISITION COORDINATOR 09/19/2024 11:30 AM TALENT ACQUISITION COORDINATOR us Minh lAves M.D., M.P.H. LAB BLOOD ADD-ON Fi nal Result [facility] [address] [place] [address], [facility] [place] [address] * (ABNORMAL) Vitamin D, Immunoassay, Total, Serum (09/19/2024 9:11 AM TALENT ACQUISITION COORDINATOR) Vitamin D, Immunoassay, Total, S 15(L) 20 - 80 ng/mL 09/19/2024 12:21 PM TALENT ACQUISITION COORDINATOR [facility] Comment: Interpretation: 10-19 ng/mL (mild to moderate deficiency) Optimum levels within the healthy population are 20-50, patients with bone disease may benefit from high levels within this range Blood (Blood, Venous) 09/19/2024 9:11 AM TALENT ACQUISITION COORDINATOR 09/19/2024 11:29 AM TALENT ACQUISITION COORDINATOR Minh Alves M.D., M.P.H. LAB BLOOD ADD-ON Fi nal Result Performing Organization Address City/[facility] Co de Phone Number [facility] [address] [place] [address] * S-TSH (Thyroid-Stimulating Hormone - Sensitive) (09/19/2024 9:11 AM TALENT ACQUISITION COORDINATOR) Pathologist [facility] TSH, Sensitive 2.0 0.3 - 4.2 mIU/L 09/19/2024 12:14 PM TALENT ACQUISITION COORDINATOR [facility] Blood (Blood, Venous) 09/19/2024 9:11 AM TALENT ACQUISITION COORDINATOR 09/19/2024 11:30 AM TALENT ACQUISITION COORDINATOR Minh Alves M.D., M.P.H. LAB BLOOD ADD-ON Fi nal Result Performing Organization Address City/[facility]/ZIP Co de Phone Number [facility] [address] [place] [address], [place] [address] * T4 (Thyroxine), Total Only (09/19/2024 9:11 AM TALENT ACQUISITION COORDINATOR) Pathologist [facility] T4 (Thyroxine), Total Only, S 7.1 4.5 - 11.7 mcg/dL 2024 1:00 PM TALENT ACQUISITION COORDINATOR DTL Blood (Blood, Venous) 09/19/2024 9:11 AM TALENT ACQUISITION COORDINATOR 2024 12:30 PM TALENT ACQUISITION COORDINATOR Result [facility] Minh Alves M.D., M.P.H. LAB BLOOD ADD-ON Fi nal Result [facility] [address] [place] [address], [facility] [address] [place] [address] * Hemoglobin A1c (09/19/2024 9:11 AM TALENT ACQUISITION COORDINATOR) Hemoglobin A1c, B 5.3 4.2 - 5.6 % 09/19/2024 12:00 PM TALENT ACQUISITION COORDINATOR [facility] Blood (Blood, Venous) 09/19/2024 9:11 AM TALENT ACQUISITION COORDINATOR 09/19/2024 11:27 AM TALENT ACQUISITION COORDINATOR Minh Alves M.D., M.P.H. LAB BLOOD ADD-ON Fi nal Result Performing Organization Address City/[facility] Co de Phone Number [facility] [address] [place] [address], [place] [facility] in [address] [address] * Folate (09/19/2024 9:11 AM TALENT ACQUISITION COORDINATOR) Folate, S 8.6 >=4.0 mcg/L 09/19/2024 12:21 PM TALENT ACQUISITION COORDINATOR [facility] Comment: Biotin has been identified by the interlocking and signal mechanic as a potential interfering substance. Higher concentrations of biotin may be found in multivitamins, hair/nail supplements, and workout supplements. If the result does not match clinical observations, repeat testing after patient refrains from the use of supplements for at least 12 hours. Blood (Blood, Venous) 09/19/2024 9:11 AM TALENT ACQUISITION COORDINATOR 09/19/2024 11:29 AM TALENT ACQUISITION COORDINATOR Minh Alves M.D., M.P.H. LAB BLOOD ADD-ON Fi nal Result Performing Organization Address City/[facility]/ZIP Co de Phone Number [facility] [address] [place] [phone], [facility] [address] [place] [phone] * Ferritin (09/19/2024 9:11 AM TALENT ACQUISITION COORDINATOR) Ferritin, S 93 31 - 409 mcg/L 09/19/2024 12:15 PM TALENT ACQUISITION COORDINATOR [facility] Comment: Biotin has been identified by the interlocking and signal mechanic as a potential interfering substance. Higher concentrations of biotin may be found in multivitamins, hair/nail supplements, and workout supplements. If the result does not match clinical observations, repeat testing after patient refrains from the use of supplements for at least 12 hours. Blood (Blood, Venous) 09/19/2024 9:11 AM TALENT ACQUISITION COORDINATOR 09/19/2024 11:29 AM TALENT ACQUISITION COORDINATOR Minh Alves M.D., M.P.H. LAB BLOOD ADD-ON Fi nal Result Performing Organization Address City/[facility]/ZIP Co de Phone Number [facility] [address] [place] [phone], [facility] [place] [address] [place] [address] * Vitamin B12 Assay (09/19/2024 9:11 AM TALENT ACQUISITION COORDINATOR) Vitamin B12 Assay, S 831 232 - 1245 ng/L 09/19/2024 12:21 PM TALENT ACQUISITION COORDINATOR [facility] Comment: Biotin has been identified by the interlocking and signal mechanic as a potential interfering substance. Higher concentrations of biotin may be found in multivitamins, hair/nail supplements, and workout supplements. If the result does not match clinical observations, repeat testing after patient refrains from the use of supplements for at least 12 hours. Blood (Blood, Venous) 09/19/2024 9:11 AM TALENT ACQUISITION COORDINATOR 09/19/2024 11:29 AM TALENT ACQUISITION COORDINATOR Minh Alves M.D., M.P.H. LAB BLOOD ADD-ON Fi nal Result Performing Organization Address City/[facility]/ZIP Co de Phone Number [facility] [address] [place] [phone], [address] [address] * Creatinine with Estimated GFR (09/19/2024 9:11 AM TALENT ACQUISITION COORDINATOR) Creatinine 1.01 0.74 - 1.35 mg/dL 09/19/2024 10:10 AM TALENT ACQUISITION COORDINATOR ERDG Estimated GFR (eGFR) >90 >=60 mL/min/BSA 09/19/2024 10:10 AM TALENT ACQUISITION COORDINATOR ERD Comment: Estimated GFR calculated using the 2020 CKD_EPI creatinine equation. Blood (Blood, Venous) 09/19/2024 9:11 AM TALENT ACQUISITION COORDINATOR 09/19/2024 9:14 AM TALENT ACQUISITION COORDINATOR us Minh Alves M.D., M.P.H. LAB BLOOD ADD-ON Fi nal Result Performing Organization Address [facility]/ZIP Co de Phone Number [facility] [address] [place] [address] * [place] Level (09/19/2024 9:11 AM TALENT ACQUISITION COORDINATOR) [place], S 0.7 0.5 - 1.2 mmol/L 09/19/2024 12:40 PM TALENT ACQUISITION COORDINATOR [facility] Blood (Blood, Venous) 09/19/2024 9:11 AM TALENT ACQUISITION COORDINATOR 09/19/2024 11:29 AM TALENT ACQUISITION COORDINATOR us Minh Alves M.D., M.P.H. LAB BLOOD ADD-ON Fi nal Result Performing Organization Address City/[facility]/ZIP Co de Phone Number [facility] [address] [place] [phone], [address] [address] * Glucose, Fasting (08/27/2024 9:33 AM TALENT ACQUISITION COORDINATOR) Glucose, P 95 70 - 100 mg/dL 08/27/2024 10:35 AM TALENT ACQUISITION COORDINATOR ERDG Last Intake 12 hr 08/27/2024 9:34 AM TALENT ACQUISITION COORDINATOR [facility] Blood (Blood, Venous) 08/27/2024 9:33 AM TALENT ACQUISITION COORDINATOR 08/27/2024 9:34 AM TALENT ACQUISITION COORDINATOR us Nicolas Luna D.O. LAB BLOOD NON ADD-ON Fi nal Result [facility] [address] [place] [address], [facility] ERDG [facility] [address] [place] [address] * DX Chest AP or PA and Lateral 2 Views (08/14/2024 11:40 AM TALENT ACQUISITION COORDINATOR) Anatomical Region Laterality Modality Chest, Thoracic RST LOS, Tho racic ARZ LOS, Thoracic FLA LOS N/A Digital Radiography Impressions 08/14/2024 12:13 PM TALENT ACQUISITION COORDINATOR No acute airspace opacities, pleural effusion, or pneumothorax. Cardiac silhouette is within normal limits. Narrative 08/14/2024 12:13 PM TALENT ACQUISITION COORDINATOR EXAM: DX CHEST AP OR PA AND LATERAL 2 VIEWS Procedure Note Timmy Lerma M.D. - 08/14/2024 EXAM: DX CHEST AP OR PA AND LATERAL 2 VIEWS IMPRESSION: No acute airspace opacities, pleural effusion, or pneumothorax. Cardiacsilhouette is within normal limits. us Nehemiah Rodriguez P.A.-C. IMG DIAGNOSTIC IMAG ING PROCEDURES Final Result * EMG (07/26/2024 8:32 AM TALENT ACQUISITION COORDINATOR) 07/26/2024 8:45 AM TALENT ACQUISITION COORDINATOR Narrative [facility] - 07/26/2024 9:55 AM TALENT ACQUISITION COORDINATOR Table formatting from the original result was not included. 26-Jul-2024 Electromyography Final Report Study Number: 1 EMG Sous Chef Kitchen Manager: Krishna Pappas Referred by: NICOLAS LUNA () Referred for: RLE Referral Code: 040 RX: 001 SUMMARY: Prior to starting the procedure, the patient's identity was verified, pertinent available records were reviewed, the nature of the procedure was explained, the appropriate sites of the exam were confirmed directly with the patient, and a pre-procedure pause was performed for final verification of all of the above. Nerve conduction studies in the right lower extremity revealed normal peroneal and tibial motor responses. Sural sensory response was normal. Needle EMG of the right lower extremity was normal. CLINICAL INTERPRETATION: Normal study. There is no electrodiagnostic evidence of a peripheral neuropathic process affecting the right lower extremity on this study. Donnie Pappas () NERVE CONDUCTIONS Record Rep Normal Normal Distal Normal F-Wave F-Wave Temp Nerve Type Site Stim Side Amp Amp CV CV Lat Lat Lat Est ( C) Fibular Motor EDB R 10.7 (> 2.0) 50 (> 41) 3.8 (< 6.6) 28.4 Tibial Motor AH R 10.8 (> 4.0) 45 (> 40) 3.1 (< 6.1) 28.7 Remark: Poor tolerance Sural Sensory Ankle R 7 (> 6.0) (> 40) 4.2 (< 4.5) 28.8 NEEDLE EMG Ins Spont MUP Recruitment Duration Amplitude Phases Muscle Side Act Fib Fasc Normal Activ Reduced Rapid Long Short High Low % Turns Vastus lateralis R NL 0 0 NL Vastus medialis R NL 0 0 NL Gastrocnemius (medial head) R NL 0 0 NL Peroneus longus R NL 0 0 NL Tibialis anterior R NL 0 0 NL This interpretation has been electronically signed: Krishna Pappas M.D. at 07/26/2024 9:35:30 AM TALENT ACQUISITION COORDINATOR Nicolas Luna D.O. NEUROLOGY ORDERABLES Fi nal Result [facility] from Last 3 Months Insurance * Guarantor: Frederick Llamas Account Type Relation to Patient Date of Phone Billing Address Personal/Family Self 1990 [address] [place] [phone] [employer] Care Teams Manager Of Community Relations Relationship Specialty Start Date End Date Nicolas Luna D.O. [address] [place] [phone] PCP - General Family Medicine 05/13/24
--- OUTSIDE RECORDS SUMMARY | 2024-09-26 03:25 | XMS_ITS | Encounter Summary ---
Author Organization [facility] Address [address] [place] [address] Care Team Providers Care Flask Fitter Name Role Phone Nicolas Luna D.O. Primary Care Provider Reason for Visit * Reason Onset Date Comments After Visit Question 09/08/2024 Encounter Details Date Type Department Care Team (Latest Contact Info) Description 09/08/2024 Clinical Communication [facility] Family Medicine Residency [place] [address] [place] [phone] Nicolas Luna D.O. [address] [place] [phone] After Visit Question Social History Tobacco Use Types Packs/Day Years Used Date Smoking Tobacco: Some Days Cigarettes 1 19.1 Started: 08/31/2005 Smokeless Tobacco: Never Alcohol Use Standard Drinks/Week Comments Yes 0 (1 standard drink = 0.6 oz pur e alcohol) occasional - monthly [facility] Utilities Answer Date Recorded In the past 12 months has [employer] electric, gas, oil, or water company threatened [...] often do you attend chur ch or gnosticist services? Never 11/01/2021 Do you belong to any clubs o r organizations such as mosque groups, unions, fraternal or athletic groups, or [...] Answer Date Recorded PHQ-2 Score 6 09/07/2024 [facility] [...] your living situation today? I have a [facility] place to live 06/13/2024 Education Answer Date Recorded What is the highest level of school you have completed or the highest degree you have received? GED or equivalent 11/2021 Sex and Gender Information Value Date Recorded Sex Assigned at Male 11/01/2021 8:39 AM COST REDUCTION ENGINEER Legal Sex Male 4:42 PM COST REDUCTION ENGINEER Gender Identity Male 11/01/2021 8:39 AM COST REDUCTION ENGINEER Sexual Orientation Lesbian or Guerrier 11/01/2021 8: 39 AM COST REDUCTION ENGINEER documented as of this encounter Plan of Treatment Upcoming Encounters Date Type Department Care Team (Late st Contact Info) Description 10/31/2024 8:30 AM COST REDUCTION ENGINEER Comprehensive Visit Department of Neurology in [address] [phone] Renaldo Gates M.B., Ch.B. [address] [place] [address] documented as of this encounter Visit Diagnoses Not on filedocumented in this encounter Additional Health Concerns Assessment Noted Time PHQ-9 Depression Total Score: 27 025 3:40 PM COST REDUCTION ENGINEER documented as of this encounter Care Teams Flask Fitter Relationship Specialty Start Date End Date Nicolas Luna D.O. [address] [place] [phone] PCP - General Family Medicine 05/13/24 documented as of this encounter
--- OUTSIDE RECORDS SUMMARY | 2024-09-26 03:25 | XMS_ITS | Referral Summary ---
Author Organization [facility] Address [address] [place] [address] Care Team Providers Care Fountain Jerk Name Role Phone Nicolas Luna D.O. Primary Care Provider Source Comments Patient records contain information from all sites at [facility]. For routine questions regarding patient records, call [phone] during business hours, M-F 8:00 AM - 5:00 PM Central Time. Record requests for emergency care only can be directed to [phone] at any time.[facility] Encounters * This document contains information received from the source organization and may not represent a complete record from that organization. Date Type Department Care Team Description 09/22/2024 Refill [facility] Family Medicine Residency [place] [address] [place] [address] Nicolas Luna D.O. Med Refill 09/19/2024 8:42 AM GREENS CUTTER - 09/19/2024 11:59 PM GREENS CUTTER Hospital Encounter Department of Laboratory Medicine, [facility], in [place], [place] [address] [place] [address] Minh Alves M.D., M.P.H. Attention Deficit With Hyperactivity Disorder; Bipolar Disorder (HCC); Polypharmacy; High Risk Medication; Posttraumatic Stress Disorder Prolonged; Other Stimulant Use Unspecified In Remission; Body Mass Index 50.0 To 59.9 Adult (HCC) Discharge Disposition: Home or Self Care 09/08/2024 Clinical Communication [facility] [address] [place] [address] Nicolas Luna D.O. After Visit Question 08/29/2024 Clinical Communication [facility] [address] [place] [address] Nicolas Luna D.O. Med Question 08/29/2024 Refill Department of Family Medicine in [place], [place] [address] [facility] [place] [address] Krish Powell D.O. Med Refill 08/29/2024 Refill [facility] [address] [place] [address] Marco A Brown III, M.D. Med Refill 08/29/2024 Refill [facility] [address] [place] [address] Sam Mcpherson M.D. Med Refill 08/27/2024 9:24 AM GREENS CUTTER - 08/27/2024 11:59 PM GREENS CUTTER Hospital Encounter Department of Laboratory Medicine, [facility], in [place], [place] [address] [place] [address] Nicolas Luna D.O. Screening Examination Diabetes Mellitus Discharge Disposition: Home or Self Care 08/26/2024 8:30 AM GREENS CUTTER Infusion Department of Infusion Therapy in [place], [place] [address] [place] [address] Nicolas Luna D.O. Schizoaffective Disorder Depressive Type (HCC) (Primary Dx); Bipolar Disorder (HCC) 08/25/2024 Refill [facility] [address] [place] [address] Sam Mcpherson M.D. Med Refill 08/25/2024 Refill [facility] [address] [place] [address] Sam Mcpherson M.D. Med Refill 08/20/2024 Refill [facility] [address] [place] [address] Sam Mcpherson M.D. Med Refill 08/15/2024 Clinical Communication [facility] [address] [place] [address] Nicolas Luna D.O. Appt Request 08/14/2024 10:25 AM GREENS CUTTER - 08/14/2024 11:59 PM GREENS CUTTER Emergency [facility] [address] [place] [phone] COVID-19 Infection (Primary Dx) Discharge Disposition: Home or Self Care 08/04/2024 Orders Only [facility] Nicolas Luna D.O. Screening Examination Diabetes Mellitus 07/29/2024 9:00 AM GREENS CUTTER Infusion Department of Infusion Therapy in [address] [address] Nicolas Luna D.O. Schizoaffective Disorder Depressive Type (HCC) (Primary Dx); Bipolar Disorder (HCC) 07/26/2024 8:45 AM GREENS CUTTER Diagnostic Department of Neurology in [address] [address] Krishna Pappas M.D. Incontinence Fecal; Incontinence Urinary; Paresthesia Discharge Disposition: Home or Self Care 07/19/2024 Refill [facility] [address] [place] [address] Krish Powell D.O. Med Refill 07/01/2024 8:30 AM CDT Infusion Department of Infusion Therapy in [address] [address] Nicolas Luna D.O. Schizoaffective Disorder Depressive Type (HCC) (Primary Dx); Bipolar Disorder (HCC) 06/27/2024 Clinical Communication [facility] [address] [place] [address] Nicolas Luna D.O. Ability Orders 06/26/2024 Refill [facility] [place] [address] [place] [address] Marco A Brown III, M.D. Med Refill from Last 3 Months Allergies Active Allergy Reactions Criticality Noted Date [...] (four) times a day. 360 mL 3 024 Active cetirizine (ZyrTEC) 10 mg tabletIndicatio ns:Allergy Seasonal Take 1 tablet (10 mg total) by mouth at bedtime as needed for allergies. 30 tablet 3 024 Active ipratropium-alb uteroL (DuoNeb) 0.5-2.5 mg/3 mL nebulizer solutionIndicat ions:Asthma Mild Intermittent (HCC) Inhale 3 mL by nebulization 4 (four) times a day as needed for wheezing or shortness of breath. 180 mL 1 024 Active meclizine (Antivert) 25 mg tabletIndicatio ns:Dizziness [...] as needed for allergies. 30 mL 2 024 Active topiramate (Topamax) 100 mg tablet Take 1 tablet (100 mg total) by mouth 2 (two) times a day. 180 tablet 3 024 Active vortioxetine (Trintellix) 20 mg tabletIndicatio ns:Depression [...] total) by mouth every morning. 30 capsule 024 Active LORazepam (Ativan) 2 mg tabletIndicatio ns:Other Mixed Anxiety Disorders Take 1 tablet (2 mg total) by mouth every 8 (eight) hours as needed for anxiety. 45 tablet 024 Active phentermine (Adipex-P) 37.5 mg tablet Take 1 tablet by mouth daily before morning meal. 024 Active prazosin (Minipress) 5 mg capsuleIndicati ons:Posttraumat [...] at bedtime. 67 tablet 025 2024 Discontinued(R eoerastoer) Hospital, Clinic, or Other Facility Administered Medication Ordered Dose Route Frequency Start Date End Date Status ARIPiprazole injection 400 mg (Felicia Ford)Indications:Attent ion Deficit With Hyperactivity Disorder,Bipolar Disorder (HCC),Polypharmacy,High [...] Dizziness 01/14/2022 Posttraumatic Stress Disorder Prolonged 11/02/19 22 Irritable Bowel Syndrome With Diarrhea Unspecified Chronic [...] Date Resolved Date Sleep Apnea 09/08/2024 09/08/2024 Immunizations Immunization Administration Dates Next Due Influenza, [...] oz pur e alcohol) occasional - monthly [facility] Utilities Answer Date Recorded In the [...] often do you attend chur ch or sabianism services? Never 11/01/2021 Do you belong to any clubs o r organizations such as uatsdin groups, unions, fraternal or athletic groups, or [...] Answer Date Recorded PHQ-2 Score 6 09/07/2024 [facility] - Occupational Stress Questionnaire Answer Date [...] your living situation today? I have a [facility] place to live 06/13/2024 Education Answer Date Recorded What is the highest level of school you have completed or the highest degree you have received? GED or equivalent 11/2021 Sex and Gender Information Value Date Recorded Sex Assigned at Male 11/01/2021 8:39 AM GREENS CUTTER Legal Sex Male 4:42 PM GREENS CUTTER Gender Identity Male 11/01/2021 8:39 AM GREENS CUTTER Sexual Orientation Lesbian or Guerrier 11/01/2021 8: 39 AM GREENS CUTTER Last Filed Vital Signs Vital Sign Reading Time Taken Comments Blood Pressure 124/97 08/26/2024 8:42 AM GREENS CUTTER Pulse 91 08/26/2024 8:42 AM GREENS CUTTER Temperature 36.3 C (97.3 F) 08/26/2024 8:42 AM GREENS CUTTER Respiratory Rate 18 08/26/2024 8:42 AM GREENS CUTTER Oxygen Saturation 96% 06/22/2024 8:07 AM CDT Inhaled Oxygen Concentration - - Weight 191 kg (420 lb) 09/08/2024 2:48 PM GREENS CUTTER Height 182.9 cm (6' 0.01) 09/08/2024 2:48 PM CS T Body Mass Index 56.95 09/08/2024 2:48 PM GREENS CUTTER Plan of Treatment Upcoming Encounters Date Type Department Care Team (Late st Contact Info) Description 10/31/2024 8:30 AM GREENS CUTTER Comprehensive Visit Department of Neurology in [address] [phone] Renaldo Gates M.B., Ch.B. [address] [place] [phone] Procedures Procedure Name Priority Date/Time Associated Diagnosis Comments VITAMIN D, IMMUNOASSAY, TOTAL, S Routine 09/19/2024 9:11 AM GREENS CUTTER Attention Deficit With Hyperactivity Disorder Bipolar Disorder (HCC) Polypharmacy High Risk Medication Posttraumatic Stress Disorder Prolonged Other Stimulant Use Unspecified In Remission Body Mass Index 50.0 To 59.9 Adult ([facility]) LIPID PANEL, S Routine 09/19/2024 9:11 AM GREENS CUTTER Attention Deficit With Hyperactivity Disorder Bipolar Disorder (HCC) Polypharmacy High Risk Medication Posttraumatic Stress Disorder Prolonged Other Stimulant Use Unspecified In Remission Body Mass Index 50.0 To 59.9 Adult ([facility]) HEMOGLOBIN A1C, B Routine 09/19/2024 9:1 1 AM GREENS CUTTER Attention Deficit With Hyperactivity Disorder Bipolar Disorder (HCC) Polypharmacy High Risk Medication Posttraumatic Stress Disorder Prolonged Other Stimulant Use Unspecified In Remission Body Mass Index 50.0 To 59.9 Adult ([facility]) FERRITIN, S Routine 09/19/2024 9:11 AM GREENS CUTTER Attention Deficit With Hyperactivity Disorder Bipolar Disorder (HCC) Polypharmacy High Risk Medication Posttraumatic Stress Disorder Prolonged Other Stimulant Use Unspecified In Remission Body Mass Index 50.0 To 59.9 Adult (HCC) LITHIUM LEVEL, S Routine 09/19/2024 9:11 AM GREENS CUTTER Attention Deficit With Hyperactivity Disorder Bipolar Disorder (HCC) Polypharmacy High Risk Medication Posttraumatic Stress Disorder Prolonged Other Stimulant Use Unspecified In Remission Body Mass Index 50.0 To 59.9 Adult (HCC) FOLATE, S Routine 09/19/2024 9:11 AM GREENS CUTTER Attention Deficit With Hyperactivity Disorder Bipolar Disorder (HCC) Polypharmacy High Risk Medication Posttraumatic Stress Disorder Prolonged Other Stimulant Use Unspecified In Remission Body Mass Index 50.0 To 59.9 Adult (HCC) VITAMIN B12 ASSAY, S Routine 09/19/2024 9:11 AM GREENS CUTTER Attention Deficit With Hyperactivity Disorder Bipolar Disorder (HCC) Polypharmacy High Risk Medication Posttraumatic Stress Disorder Prolonged Other Stimulant Use Unspecified In Remission Body Mass Index 50.0 To 59.9 Adult (HCC) CREATININE WITH EGFR, S/P Routine 09/19/2024 9:11 AM GREENS CUTTER Attention Deficit With Hyperactivity Disorder Bipolar Disorder (HCC) Polypharmacy High Risk Medication Posttraumatic Stress Disorder Prolonged Other Stimulant Use Unspecified In Remission Body Mass Index 50.0 To 59.9 Adult (HCC) T4 (THYROXINE), TOT ONLY, S Routine 09/19/2024 9:11 AM GREENS CUTTER Attention Deficit With Hyperactivity Disorder Bipolar Disorder (HCC) Polypharmacy High Risk Medication Posttraumatic Stress Disorder Prolonged Other Stimulant Use Unspecified In Remission Body Mass Index 50.0 To 59.9 Adult (HCC) THYROID-STIMULATI NG HORMONE-SENSITIVE (S-TSH) Routine 09/19/2024 9:11 AM GREENS CUTTER Attention Deficit With Hyperactivity Disorder Bipolar Disorder (HCC) Polypharmacy High Risk Medication Posttraumatic Stress Disorder Prolonged Other Stimulant Use Unspecified In Remission Body Mass Index 50.0 To 59.9 Adult (HCC) GLUCOSE, FASTING, S/P Routine 08/27/2024 9:33 AM GREENS CUTTER Screening Examination Diabetes Mellitus DX CHEST AP OR PA AND LATERAL 2 VIEWS RAD - Semiurgent (Fast; most ED patients; some inpatients) 08/14/2024 11:40 AM GREENS CUTTER EMG Routine 07/26/2024 8:32 AM GREENS CUTTER Incontinence Fecal Incontinence Urinary Paresthesia from Last 3 Months Results * (ABNORMAL) Lipid Panel (09/19/2024 9:11 AM GREENS CUTTER) Triglycerides 274(H) mg/dL 09/19/2024 12:14 PM GREENS CUTTER [facility] Comment: ----REFERENCE VALUE---- Normal: <150 mg/dL Borderline High: 150-199 mg/dL High: 200-499 mg/dL Very High: > or =500 mg/dL Cholesterol, Total 197 mg/dL 2024 12:14 PM GREENS CUTTER [facility] Comment: ----REFERENCE VALUE---- Desirable: < 200 mg/dL Borderline High: 200 - 239 mg/dL High: > or = 240 mg/dL Cholesterol, LDL, Calculated 103 mg/dL 09/19/2024 12:14 PM GREENS CUTTER [facility] Comment: ----REFERENCE VALUE---- Desirable: <100 mg/dL Above Desirable: 100-129 mg/dL Borderline High: 130-159 mg/dL High: 160-189 mg/dL Very High: >=190 mg/dL ----ADDITIONAL INFORMATION---- LDL cholesterol calculated using the Kwon/NIH equation. Cholesterol, HDL 47 >=40 mg/dL 09/19/19 12:14 PM GREENS CUTTER [facility] Cholesterol, Non-HDL, Calculated 150 mg/dL 09/19/2024 12:14 PM GREENS CUTTER [facility] Comment: ----REFERENCE VALUE---- Desirable: <130 mg/dL Above Desirable: 130-159 mg/dL Borderline High: 160-189 mg/dL High: 190-219 mg/dL Very High: > or =220 mg/dL Fasting (8 HR or more) Yes 09/19/2024 9:11 AM GREENS CUTTER [facility] Blood (Blood, Venous) 09/19/2024 9:11 AM GREENS CUTTER 09/19/2024 11:30 AM GREENS CUTTER Minh Alves M.D., M.P.H. LAB BLOOD ADD-ON Fi nal Result Performing Organization Address [facility]/ZIP Co de Phone Number [facility] [address] [place] [address], [place] [address] * (ABNORMAL) Vitamin D, Immunoassay, Total, Serum (09/19/2024 9:11 AM GREENS CUTTER) Vitamin D, Immunoassay, Total, S 15(L) 20 - 80 ng/mL 09/19/2024 12:21 PM GREENS CUTTER [facility] Comment: Interpretation: 10-19 ng/mL (mild to moderate deficiency) Optimum levels within the healthy population are 20-50, patients with bone disease may benefit from high levels within this range Blood (Blood, Venous) 09/19/2024 9:11 AM GREENS CUTTER 09/19/2024 11:29 AM GREENS CUTTER Minh Alves M.D., M.P.H. LAB BLOOD ADD-ON Fi nal Result Performing Organization Address City/[facility]/ZIP Co de Phone Number [facility] [address] [place] [address], [place] [address] * S-TSH (Thyroid-Stimulating Hormone - Sensitive) (09/19/2024 9:11 AM GREENS CUTTER) TSH, Sensitive 2.0 0.3 - 4.2 mIU/L 09/19/2024 12:14 PM GREENS CUTTER [facility] Blood (Blood, Venous) 09/19/2024 9:11 AM GREENS CUTTER 09/19/2024 11:30 AM GREENS CUTTER Minh Alves M.D., M.P.H. LAB BLOOD ADD-ON Fi nal Result [facility] [address] [place] [address], [facility] [address] [place] [id number] * T4 (Thyroxine), Total Only (09/19/2024 9:11 AM GREENS CUTTER) T4 (Thyroxine), Total Only, S 7.1 4.5 - 11.7 mcg/dL 2024 1:00 PM GREENS CUTTER DT Blood (Blood, Venous) 09/19/2024 9:11 AM GREENS CUTTER 2024 12:30 PM GREENS CUTTER Minh Alves M.D., M.P.H. LAB BLOOD ADD-ON Fi nal Result Performing Organization Address City/[facility]/ZIP Co de Phone Number [facility] [address] [place] [address], [facility] [address] [place] [address] * Hemoglobin A1c (09/19/2024 9:11 AM GREENS CUTTER) Pathologist [facility] [place] Hemoglobin A1c, B 5.3 4.2 - 5.6 % 09/19/2024 12:00 PM GREENS CUTTER [facility] Blood (Blood, Venous) 09/19/2024 9:11 AM GREENS CUTTER 09/19/2024 11:27 AM GREENS CUTTER Minh Alves M.D., M.P.H. LAB BLOOD ADD-ON Fi nal Result [facility] [address] [place] [address], [place] [facility] [address] [place] [address] * Folate (09/19/2024 9:11 AM GREENS CUTTER) Pathologist [facility] [place] Folate, S 8.6 >=4.0 mcg/L 09/19/2024 12:21 PM GREENS CUTTER [facility] Comment: Biotin has been identified by the electrologist as a potential interfering substance. Higher concentrations of biotin may be found in multivitamins, hair/nail supplements, and workout supplements. If the result does not match clinical observations, repeat testing after patient refrains from the use of supplements for at least 12 hours. Blood (Blood, Venous) 09/19/2024 9:11 AM GREENS CUTTER 09/19/2024 11:29 AM GREENS CUTTER Minh Alves M.D., M.P.H. LAB BLOOD ADD-ON Fi nal Result Performing Organization Address [facility] Co de Phone Number [facility] [address] [place] [address] * Ferritin (09/19/2024 9:11 AM GREENS CUTTER) Ferritin, S 93 31 - 409 mcg/L 09/19/2024 12:15 PM GREENS CUTTER TO Comment: Biotin has been identified by the electrologist as a potential interfering substance. Higher concentrations of biotin may be found in multivitamins, hair/nail supplements, and workout supplements. If the result does not match clinical observations, repeat testing after patient refrains from the use of supplements for at least 12 hours. Blood (Blood, Venous) 09/19/2024 9:11 AM GREENS CUTTER 09/19/2024 11:29 AM GREENS CUTTER Minh Alves M.D., M.P.H. LAB BLOOD ADD-ON Fi nal Result Performing Organization Address City/[facility]/ZIP Co de Phone Number [facility] [address] [place] [address] * Vitamin B12 Assay (09/19/2024 9:11 AM GREENS CUTTER) Vitamin B12 Assay, S 831 232 - 1245 ng/L 09/19/2024 12:21 PM GREENS CUTTER [facility] Comment: Biotin has been identified by the electrologist as a potential interfering substance. Higher concentrations of biotin may be found in multivitamins, hair/nail supplements, and workout supplements. If the result does not match clinical observations, repeat testing after patient refrains from the use of supplements for at least 12 hours. Blood (Blood, Venous) 09/19/2024 9:11 AM GREENS CUTTER 09/19/2024 11:29 AM GREENS CUTTER Minh Alves M.D., M.P.H. LAB BLOOD ADD-ON Fi nal Result Performing Organization Address [facility] Co de Phone Number [facility] [address] [place] [address], [facility] [address] [place] [address] * Creatinine with Estimated GFR (09/19/2024 9:11 AM GREENS CUTTER) Creatinine 1.01 0.74 - 1.35 mg/dL 09/19/2024 10:10 AM GREENS CUTTER ERD Estimated GFR (eGFR) >90 >=60 mL/min/BSA 09/19/2024 10:10 AM GREENS CUTTER [facility] Comment: Estimated GFR calculated using the 2020 CKD_EPI creatinine equation. Blood (Blood, Venous) 09/19/2024 9:11 AM GREENS CUTTER 09/19/2024 9:14 AM GREENS CUTTER Minh Alves M.D., M.P.H. LAB BLOOD ADD-ON Fi nal Result Performing Organization Address [facility]/ZIP Co de Phone Number [facility] [address] [place] [address], [facility] [address] [place] [address] * [place] Level (09/19/2024 9:11 AM GREENS CUTTER) [place], S 0.7 0.5 - 1.2 mmol/L 09/19/2024 12:40 PM GREENS CUTTER [facility] Blood (Blood, Venous) 09/19/2024 9:11 AM GREENS CUTTER 09/19/2024 11:29 AM GREENS CUTTER us Minh Alves M.D., M.P.H. LAB BLOOD ADD-ON Fi nal Result Performing Organization Address [facility] Co de Phone Number [facility] [address] [place] [address], [facility] [address] [place] [address] * Glucose, Fasting (08/27/2024 9:33 AM GREENS CUTTER) Glucose, P 95 70 - 100 mg/dL 08/27/2024 10:35 AM GREENS CUTTER ERDG Last Intake 12 hr 08/27/2024 9:34 AM GREENS CUTTER ERD Blood (Blood, Venous) 08/27/2024 9:33 AM GREENS CUTTER 08/27/2024 9:34 AM GREENS CUTTER us Nicolas Luna D.O. LAB BLOOD NON ADD-ON Fi nal Result Performing Organization Address [facility] Co de Phone Number [facility] [address] [place] [address], [facility] [address] [place] [address] * DX Chest AP or PA and Lateral 2 Views (08/14/2024 11:40 AM GREENS CUTTER) Anatomical Region Laterality Modality Chest, Thoracic RST LOS, Tho racic ARZ LOS, Thoracic FLA LOS N/A Digital Radiography Impressions 08/14/2024 12:13 PM GREENS CUTTER No acute airspace opacities, pleural effusion, or pneumothorax. Cardiac silhouette is within normal limits. Narrative 08/14/2024 12:13 PM GREENS CUTTER EXAM: DX CHEST AP OR PA AND LATERAL 2 VIEWS Procedure Note Timmy Lerma M.D. - 08/14/2024 EXAM: DX CHEST AP OR PA AND LATERAL 2 VIEWS IMPRESSION: No acute airspace opacities, pleural effusion, or pneumothorax. Cardiacsilhouette is within normal limits. us Nehemiah Rodriguez P.A.-C. IMG DIAGNOSTIC IMAG ING PROCEDURES Final Result * EMG (07/26/2024 8:32 AM GREENS CUTTER) 07/26/2024 8:45 AM GREENS CUTTER Narrative [facility] - 07/26/2024 9:55 AM GREENS CUTTER Table formatting from the original result was not included. 26-Jul-2024 Electromyography Final Report Study Number: 1 EMG Senior Quantity Surveyor: Krishna Pappas Referred by: NICOLAS LUNA () [...] Krishna Pappas M.D. at 07/26/2024 9:35:30 AM GREENS CUTTER Nicolas Luna D.O. NEUROLOGY ORDERABLES Fi nal Result [facility] from Last 3 Months Insurance [facility] Care Teams Fountain Jerk Relationship Specialty Start Date End Date Nicolas Luna D.O. [address] [place] [phone] PCP - General Family Medicine 05/13/24
--- OUTSIDE RECORDS SUMMARY | 2024-09-26 03:25 | XMS_ITS | Encounter Summary ---
Author Organization [facility] Address [address] [place] [address] Care Team Providers Care Social Science Research Assistant Name Role Phone Nicolas Luna D.O. Primary Care Provider Reason for Visit * Reason Comments Med Refill Encounter Details Date Type Department Care Team (Late st Contact Info) Description 08/29/2024 Refill [facility] Family Medicine Residency [place] [address] [place] [address] Marco A Brown III, M.D. [address] [place] [phone] Med Refill Social History Tobacco Use Types Packs/Day Years Used Date Smoking Tobacco: Every Day Cigarettes 1 19.1 Started: 08/31/2005 Smokeless Tobacco: Never Alcohol Use Standard Drinks/Week Comments Not Currently 0 (1 standard drink = 0.6 oz pur e alcohol) [facility] Utilities Answer Date Recorded In the [...] often do you attend chur ch or mandaen services? Never 11/01/2021 Do you belong to any clubs o r organizations such as adventism groups, unions, fraternal or athletic groups, or [...] Date Recorded PHQ-2 Score 6 07/26/2024 [facility] - Occupational [...] your living situation today? I have a [facility] place to live 06/13/2024 Education Answer Date Recorded What is the highest level of school you have completed or the highest degree you have received? GED or equivalent 11/2021 Sex and Gender Information Value Date Recorded Sex Assigned at Male 11/01/2021 8:39 AM FRONT DESK LEAD Legal Sex Male 4:42 PM FRONT DESK LEAD Gender Identity Male 11/01/2021 8:39 AM FRONT DESK LEAD Sexual Orientation Lesbian or Guerrier 11/01/2021 8: 39 AM FRONT DESK LEAD documented as of this encounter Miscellaneous Notes * Telephone Encounter - Fatmata Cabello - 08/30/2024 7:19 AM CST Duplicate. Waiting for patient to respond to nursing T DESK LEAD documented in this encounter Plan of Treatment Upcoming Encounters Date Type Department Care Team (Late st Contact Info) Description 10/31/2024 8:30 AM FRONT DESK LEAD Comprehensive Visit Department of Neurology in [address] [phone] Renaldo Gates M.B., Ch.B. [address] [place] [phone] documented as of this encounter Visit Diagnoses Diagnosis Attention Deficit With Hyperactivity Disorder documented in this encounter Additional Health Concerns Assessment Noted Time PHQ-9 Depression Total Score: 27 024 3:56 PM FRONT DESK LEAD documented as of this encounter Care Teams Social Science Research Assistant Relationship Specialty Start Date End Date Nicolas Luna D.O. [address] [place] [phone] PCP - General Family Medicine 05/13/24 documented as of this encounter
--- OUTSIDE RECORDS SUMMARY | 2024-09-26 03:25 | XMS_ITS | Encounter Summary ---
Author Organization [facility] Address [address] [place] [address] Care Team Providers Care Salon Receptionist Name Role Phone Nicolas Castellon D.O. Primary Care Provider Reason for Visit * Reason Comments Med Refill Encounter Details Date Type Department Care Team (Late st Contact Info) Description 08/29/2024 Refill [facility] Family Medicine [facility] [place] [address] [facility] [place] [address] Sam Mcpherson M.D. [address] [place] [address] Med Refill Social History Tobacco Use Types Packs/Day Years Used Date Smoking Tobacco: Every Day Cigarettes 1 19.1 Started: 08/31/2005 Smokeless Tobacco: Never Alcohol Use Standard Drinks/Week Comments Not Currently 0 (1 standard drink = 0.6 oz pur e alcohol) [facility] Utilities Answer Date Recorded In the [...] any clubs o r organizations such as scientology groups, unions, fraternal or athletic groups, or [...] Answer Date Recorded PHQ-2 Score 6 07/26/2024 [employer] [facility] - Occupational Stress [...] your living situation today? I have a [facility] place to live 06/13/2024 Education Answer Date Recorded What is the highest level of school you have completed or the highest degree you have received? GED or equivalent 11/2021 Sex and Gender Information Value Date Recorded Sex Assigned at Male 11/01/2021 8:39 AM WINCH OPERATOR Legal Sex Male 4:42 PM WINCH OPERATOR Gender Identity Male 11/01/2021 8:39 AM WINCH OPERATOR Sexual Orientation Lesbian or Guerrier 11/01/2021 8: 39 AM WINCH OPERATOR documented as of this encounter Miscellaneous Notes * Telephone Encounter - Fatmata Cabello - 08/30/2024 7:15 AM CST Needs Review: Med Refill Team is unable to forward request to provider. Controlled Substance Primary Provider: Nicolas Castellon D.O. Requested Prescriptions Pending Prescriptions Disp Refills LORazepam (Ativan) 2 mg tablet [Pharmacy Med Name: LORAZEPAM 2MG TABS] 45 tablet 0 Sig: TAKE ONE TABLET BY MOUTH THREE TIMES A DAY NEEDED FOR ANXIETY H OPERATOR documented in this encounter Plan of Treatment Upcoming Encounters Date Type Department Care Team (Late st Contact Info) Description 10/31/2024 8:30 AM WINCH OPERATOR Comprehensive Visit Department of Neurology in [place], [place] [address] [place] [phone] Renaldo Gates M.B., Ch.B. [address] [place] [phone] documented as of this encounter Visit Diagnoses Diagnosis Other Mixed Anxiety Disorders documented in this encounter Additional Health Concerns Assessment Noted Time PHQ-9 Depression Total Score: 27 024 3:56 PM WINCH OPERATOR documented as of this encounter Care Teams Salon Receptionist Relationship Specialty Start Date End Date Nicolas Castellon D.O. [address] [place] [address] PCP - General Family Medicine 05/13/24 documented as of this encounter
--- OUTSIDE RECORDS SUMMARY | 2024-09-26 03:25 | XMS_ITS | Encounter Summary ---
Author Organization [facility] Address [address] [place] [address] Care Team Providers Care Marketing Recruiter Name Role Phone Nicolas Luna D.O. Primary Care Provider Encounter Details Date Type Department Care Team (Latest Contact Info) Description 08/27/2024 9:24 AM BEHAVIORAL PEDIATRICIAN - 08/27/2024 11:59 PM [facility] Hospital Encounter Department of Laboratory Medicine, [facility], in [place], [place] [address] [place] [address] Nicolas Luna D.O. [address] [place] [address] Screening Examination Diabetes Mellitus Discharge Disposition: Home or Self Care Social History Tobacco Use Types Packs/Day Years Used Date Smoking Tobacco: Every Day Cigarettes 1 19.1 Started: 08/31/2005 Smokeless Tobacco: Never Alcohol Use Standard Drinks/Week Comments Not Currently 0 (1 standard drink = 0.6 oz pur e alcohol) [facility] Utilities Answer Date Recorded In the past 12 months has e [employer], gas, oil, or water company threatened to [...] 11/01/2021 How often do you attend chur or denominational services? Never 11/01/2021 Do you belong to any clubs o r organizations such as mu-ism groups, unions, fraternal or athletic groups, or [...] Answer Date Recorded PHQ-2 Score 6 07/26/2024 [facility] of Occupat ional Health - Occupational [...] your living situation today? I have a [facility] place to live 06/13/2024 Education Answer Date Recorded What is the highest level of school you have completed or the highest degree you have received? GED or equivalent 11/2021 Sex and Gender Information Value Date Recorded Sex Assigned at Male 11/01/2021 8:39 AM BEHAVIORAL PEDIATRICIAN Legal Sex Male 4:42 PM BEHAVIORAL PEDIATRICIAN Gender Identity Male 11/01/2021 8:39 AM BEHAVIORAL PEDIATRICIAN Sexual Orientation Lesbian or Guerrier 11/01/2021 8: 39 AM BEHAVIORAL PEDIATRICIAN documented as of this encounter Medications at Time of Discharge albuterol 2.5 mg /3 mL nebulizer solutionIndication s:Asthma Mild Intermittent (HCC) Inhale 3 mL (2.5 mg total) by nebulization 4 (four) times a day. 360 mL 3 albuterol 90 mcg/actuation inhalerIndications :Asthma Mild Intermittent [...] 2 mg tabletIndications: Other Mixed Anxiety Disorders TAKE ONE TABLET BY MOUTH THREE TIMES A DAY NEEDED FOR ANXIETY 45 tablet 4 08/29/20 24 prazosin (Minipress) 1 mg capsuleIndications :Posttraumatic [...] st Contact Info) Description 10/31/2024 8:30 AM BEHAVIORAL PEDIATRICIAN Comprehensive Visit Department of Neurology in [address] [phone] Renaldo Gates M.B., .B. [address] [place] [phone] documented as of this encounter Procedures Procedure Name Priority Date/Time Associated Diagnosis Comments GLUCOSE, FASTING, S/P Routine 08/27/2024 9:33 AM BEHAVIORAL PEDIATRICIAN Screening Examination Diabetes Mellitus documented in this encounter Results * Glucose, Fasting (08/27/2024 9:33 AM BEHAVIORAL PEDIATRICIAN) Glucose, P 95 70 - 100 mg/dL 08/27/2024 10:35 AM BEHAVIORAL PEDIATRICIAN ERDG Last Intake 12 hr 08/27/2024 9:34 AM BEHAVIORAL PEDIATRICIAN ERDG Blood (Blood, Venous) 08/27/2024 9:33 AM BEHAVIORAL PEDIATRICIAN 08/27/2024 9:34 AM BEHAVIORAL PEDIATRICIAN us Nicolas Luna D.O. LAB BLOOD NON ADD-ON Fi nal Result [facility] [address] [facility] [address] [place] [address] documented in this encounter Visit Diagnoses Diagnosis Screening Examination Diabetes Mellitus documented in this encounter Additional Health Concerns Assessment Noted Time PHQ-9 Depression Total Score: 27 024 3:56 PM BEHAVIORAL PEDIATRICIAN documented as of this encounter Care Teams Marketing Recruiter Relationship Specialty Start Date End Date Nicolas Luna D.O. [address] [place] [phone] PCP - General Family Medicine 05/13/24 documented as of this encounter
[2024-09-26 03:30] VITALS: BP 139/76; PULSE 99; RESP 16; TEMP 36.8; O2SAT 99
== END 2024-09-26 03:57 | disposition short-term general hospital (02) ==
LOC: ED 03:21
PROVIDERS: Emergency Provider Family Medicine
DX: S06.360A Traumatic hemorrhage of cerebrum, unspecified, without loss of consciousness, initial encounter (principal); S02.2XXA Fracture of nasal bones, initial encounter for closed fracture; Y04.2XXA Assault by strike against or bumped into by another person, initial encounter; Y99.0 Civilian activity done for income or pay
CPT/HCPCS: 70450; 70486; 71045; 94761; 96365; 99284; 99285; A9270; J1953

== ENCOUNTER 2024-09-26 03:41 | Outpatient (CLI) | payer MEDICAID, SELFPAY | END 2024-09-26 03:42 | disposition home or self-care (01) | LOC: AMB 10-12 14:39 | PROVIDERS: Visit Provider Family Medicine | DX: S02.92XB Unspecified fracture of facial bones, initial encounter for open fracture (principal); S02.2XXA Fracture of nasal bones, initial encounter for closed fracture | CPT/HCPCS: A0425; A0427 ==